=== PATIENT | male | born 1955 | race Caucasian/White ===

== ENCOUNTER 2017-05-07 02:52 | Observation (INO) | payer MEDICARE, OTHER ==
[~2017-05-07] VITALS: Ht 177.8 cm; Wt 91.8 kg
[~2017-05-07 02:52] MED LIST: AMOX500T PO; BACL20TA PO; BISA5TAB64 PO; CENTCHW3; CYMB30CA PO; DIAZ5TAB PO; FENT100D T-DERMAL; FERR1TAB7; GABA800T PO; HYDR50IN3 PO; KCL20 PO; OMEP20TA39 PO; OXYB5TAB PO; PERC7.5T13 PO; PROM25TA5 PO; SENN1TAB2 PO; SPIRCAP INH; TUMS750C PO; VITA100017 PO
[2017-05-07 02:55] VITALS: BP 125/67; PULSE 78; RESP 20; TEMP 98; O2SAT 96
[2017-05-07 03:11] VITALS: O2SAT 96
[2017-05-07 03:30] LABS: AUTOMATED NEUTROPHIL # 7.8 TH/MM3 (1.8-7.7); BASOPHIL % 0.4 % (0.0-2.0); EOSINOPHIL # 0.3 TH/MM3 (0-0.4); EOSINOPHIL % 2.4 % (0.0-4.0); HEMATOCRIT 39.1 % (39.0-51.0); HEMOGLOBIN 13.5 GM/DL (13.0-17.0); LYMPH % 13.9 % (9.0-44.0); LYMPHOCYTE # 1.4 TH/MM3 (1.0-4.8); MEAN CELL VOLUME 84.7 FL (80.0-100.0); MEAN CORPUSCULAR HEMOGLOBIN 29.2 PG (27.0-34.0); MEAN CORPUSCULAR HGB CONC 34.5 % (32.0-36.0); MEAN PLATELET VOLUME 7.9 FL (7.0-11.0); MONO % 7.9 % (0.0-8.0); MONOCYTE # 0.8 TH/MM3 (0-0.9); NEUT % 75.4 % (16.0-70.0); PLATELET COUNT 432 TH/MM3 (150-450); RED BLOOD COUNT 4.62 MIL/MM3 (4.50-5.90); RED CELL DISTRIBUTION WIDTH 14.5 % (11.6-17.2); WHITE BLOOD COUNT 10.4 TH/MM3 (4.0-11.0)
[2017-05-07] MEDS ORDERED: OXYC1CAP PO (03:38)
[2017-05-07] MEDS ORDERED: HYDR-3133 PO (03:38)
[2017-05-07] MEDS ORDERED: GABA800T PO (03:38)
[2017-05-07] MEDS ORDERED: VANC250C2 PO (03:38)
[2017-05-07] MEDS ORDERED: FENT100D T-DERMAL (03:38)
[2017-05-07] MEDS ORDERED: POTA-163 PO (03:38)
[2017-05-07] MEDS ORDERED: SPIRCAP INH (03:38)
[2017-05-07] MEDS ORDERED: BACL20TA PO (03:38)
[2017-05-07] MEDS ORDERED: DIAZ5TAB PO (03:38)
[2017-05-07 03:42] LABS: BACTERIA, URINE FEW /hpf; BILIRUBIN, URINE NEG (NEG); BLOOD, URINE MOD (NEG); CALCIUM OXALATE CRYSTALS,URINE RARE /hpf; GLUCOSE,URINE NEG (NEG); HYALINE CAST, URINE 30 /lpf (RARE); KETONE, URINE 10 mg/dL (NEG); MUCUS URINE FEW /lpf (OCC); NITRITE,URINE NEG (NEG); SQUAMOUS EPITHELIAL CELL URINE 1 /hpf (0-5); URINE COLOR YELLOW (YELLW/STRAW); URINE LEUKOCYTE ESTERASE LARGE (NEG); WHITE BLOOD CELL CLUMPS MOD
[2017-05-07 03:53] LABS: ALBUMIN 3.2 GM/DL (3.4-5.0); ALT (GPT) 23 U/L (12-78); AST (GOT) 14 U/L (15-37); BICARBONATE 23.8 MEQ/L (21.0-32.0); BLOOD UREA NITROGEN 21 MG/DL (7-18); CALCIUM 8.4 MG/DL (8.5-10.1); CHLORIDE 104 MEQ/L (98-107); CREATININE 0.95 MG/DL (0.60-1.30); GLOMERULAR FILTRATION RATE 81 ML/MIN (>89); GLUCOSE,RANDOM 96 MG/DL (74-106); SODIUM (NA) 138 MEQ/L (136-145)
[2017-05-07 04:03] LABS: ALKALINE PHOSPHATASE 131 U/L (45-117); TOTAL BILIRUBIN ADULT 0.3 MG/DL (0.2-1.0); TOTAL PROTEIN 8.5 GM/DL (6.4-8.2)
[2017-05-07 04:04] LABS: ACETAMINOPHEN LESS THAN 2.0 MCG/ML (10.0-30.0)
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
--- NOTE | 2017-05-07 05:11 | RADRPT ---
EXAM DATE/TIME: 05/07/2017 04:17 [facility] COMPARISON: No previous studies available for comparison. INDICATIONS : Altered mental status. RADIATION DOSE: 56.35 CTDIvol (mGy) MEDICAL HISTORY : Non-responsive. SURGICAL HISTORY : Non-responsive. ENCOUNTER: Initial ACUITY: 1 day PAIN SCALE: Non-responsive LOCATION: cranial TECHNIQUE: Multiple contiguous axial images were obtained of the head. Using automated exposure control and adj ustment of the mA and/or kV according to patient size, radiation dose was kept as low as reasonably a chievable to obtain optimal diagnostic quality images. DICOM format image data is available electro nically for review and comparison. FINDINGS: CEREBRUM: Mild diffuse cerebral atrophy. The ventricles are normal for age. No evidence of midline shift, mass lesion, hemorrhage or acute infarction. No extra-axial fluid collections are seen. POSTERIOR FOSSA: The cerebellum and brainstem are intact. The 4th ventricle is midline. The cerebellopontine angle i s unremarkable. EXTRACRANIAL: The visualized portion of the orbits is intact. SKULL: The calvaria is intact. No evidence of skull fracture. CONCLUSION: 1. Senescent changes without acute intracranial abnormality. Terrell Erickson MD on May 07, 2017 at 5:09 Board Certified Radiologist. This report was verified electronically.
[2017-05-07] MEDS ORDERED: SODIUM CHLORID 0.9% 500 ML INJ 500 ML IV ONE (05:15)
[2017-05-07] MEDS ORDERED: cefTRIAXone INJ 1,000 MG in SODIUM CHLORIDE 0.9% INJ 100 ML IV ONE (05:15)
--- NOTE | 2017-05-07 05:49 | RADRPT ---
EXAM DATE/TIME: 05/07/2017 04:44 [facility] COMPARISON: CHEST SINGLE AP, August 24, 2014, 15:02. INDICATIONS : Chest pain MEDICAL HISTORY : Chronic obstructive pulmonary disease. Paraplegic, Squamous cell cancer SURGICAL HISTORY : Left shoulder ENCOUNTER: Initial ACUITY: 1 day PAIN SCORE: 7/10 LOCATION: Bilateral chest FINDINGS: Interval placement of right IJ power line. Mild linear left lower lung zone airspace disease with sli ght volume loss centered prior exam. No significant new focal pleural-parenchymal opacities. Cardiome diastinal contours are within normal limits. Remainder of the exam is unchanged. CONCLUSION: 1. Mild stable left lower lung zone atelectasis/scarring. 2. No significant interval change or acute abnormality. Terrell Erickson MD on May 07, 2017 at 5:47 Board Certified Radiologist. This report was verified electronically.
[2017-05-07] MEDS ORDERED: SODIUM CHLOR 0.9% 1000 ML INJ 1,000 ML IV SCH (06:16)
[2017-05-07] MEDS ORDERED: SENNOSIDES 8.6 MG TAB PO PRN (06:30)
[2017-05-07] MEDS ORDERED: MAGNESIUM HYDROXIDE SUSP 30 ML CUP PO PRN (06:30)
[2017-05-07] MEDS ORDERED: HALOPERIDOL LACTATE 5 MG/ML AMP IM ONE (06:30)
[2017-05-07] MEDS ORDERED: SODIUM CHLORIDE 0.9% FLUSH 10 ML FLUSH IV FLUSH PRN (06:30)
[2017-05-07] MEDS ORDERED: BISACODYL 10 MG SUPP RECTAL PRN (06:30)
[2017-05-07] MEDS ORDERED: DIAZEPAM 5 MG TAB PO PRN (06:30)
[2017-05-07] MEDS ORDERED: LACTULOSE SYRUP 20 GM/30 ML CUP PO PRN (06:30)
[2017-05-07] MEDS ORDERED: ACETAMINOPHEN 325 MG TAB PO PRN (06:30)
[2017-05-07 06:46] VITALS: BP 125/72; PULSE 100; RESP 18; O2SAT 93
[2017-05-07 07:34] VITALS: BP 135/71; PULSE 78; RESP 19; TEMP 97.6; O2SAT 91
--- NOTE | 2017-05-07 08:30 | HHI.HP ---
[facility] Service [place] [facility] Primary Care Physician Unknown Admission Diagnosis AMS, Pretty ACT Diagnoses: Chief Complaint: Pretty Act Travel History International Travel<30 Days: No Contact w/Intl Traveler <30 Da: No Traveled to Known Affected Are: No History of Present Illness Written by Nancy Marshall, acting as scribe for Dr. Maldonado on 05/07/17 at 08: 26. 62-year-old male with history of recent endocarditis on IV Vancomycin, COPD, encephalomyelitis, arthritis, anxiety, paraplegia mostly wheelchair bound, suprapubic catheter in place, presents under Pretty Act placed by police department. The patient states he and his had a disagreement. She told him he lost his mind and he didn't agree. She called police to come to the house. The patient left on his electric wheelchair to go for a "raisa ride" down to the beach, when the police picked him up on the way. Per the Pretty Act, patient was driving the scooter erratically and would not stop for police. The patient states he was recently admitted to [facility], diagnosed with an "infection in my heart". He was discharged 2 days ago. He has been at home with [facility] receiving IV Vanco bid. The [facility] nurse administered the antibiotic in the mornings, and his has been administering this in the evening. He denies any recent fevers/chills. Denies any chest pain or shortness of breath. Denies any history of IVDU. He reports chronic cough [id number] since he previously had a tracheostomy. Denies any abdominal pain, nausea/vomiting, diarrhea, or constipation. He has a chronic suprapubic catheter [id number] since he's been in a wheelchair. He believes the suprapubic catheter was exchanged 2 weeks ago. He states he has been wheelchair bound since he had back surgery by Dr. 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 The patient has no other medical complaints at this time. Review of Systems Except as stated in HPI: all other systems reviewed are Neg Past Family Social History Past Medical History recent endocarditis on IV Vancomycin arthritis anxiety Bowel and urinary incontinence Contractures (Due to paraplegia) COPD Microcytic anemia Nephrolithiasis, recurrent Neurogenic bladder, has suprapubic catheter Neuropathy Recurrent urosepsis Paraplegia (Due to acute disseminated encephalomyelitis) in 1997 Past Surgical History appendectomy left shoulder surgery x2 back surgery suprapubic catheter placement squamous cell skin cancer resection Reported Medications Vancomycin (Vancomycin HCl) 250 Mg Cap 1,000 Mg PO BID Hydroxyzine HCl 25 Mg Tab 25 Mg PO QID Spiriva Handihaler (Tiotropium Inh) 18 Mcg Cap 18 Mcg INH DAILY 1 capsule = 18 mcg Diazepam 5 Mg Tab 5 Mg PO TID PRN Baclofen 20 Mg Tab 20 Mg PO QID Potassium Chloride ER (Potassium Chloride) 20 Meq Tab 20 Meq PO DAILY Oxycodone (Oxycodone HCl) 5 Mg Cap 5 Mg PO BID PRN Gabapentin 800 Mg Tab 800 Mg PO QID Fentanyl Patch 72 HR (Fentanyl) 100 Mcg/Hr Patch 100 Mcg T-DERMAL Q72H Allergies: Coded Allergies: silicone (Verified Allergy, Unknown, 05/07/17) per patient "if it is in my body like my catheter" *MDRO Multi-Drug Resistant Organism (Unverified Adverse Reaction, Unknown , 08/28/14) MRSA (urine) 08/2014 Active Ordered Medications Current Medications Medications (Trade) Dose Ordered Sig/Reyes Route Start Time Stop Time Status Last Admin Ceftriaxone Sodium 1000 mg/ Sodium Chloride 100 ml @ 200 mls/hr Q24H IV 05/08/17 06:00 Sodium Chloride 1,000 ml @ 100 mls/hr Q10H IV 05/07/17 06:16 05/07/17 10:04 (NS Flush) 2 ml UNSCH PRN IV FLUSH 05/07/17 06:30 (NS Flush) 2 ml BID IV FLUSH 05/07/17 09:00 05/07/17 10:04 (Tylenol) 650 mg Q6H PRN PO 05/07/17 06:30 (Pat-Colace) 1 tab BID PO 05/07/17 09:00 05/07/17 10:03 (Milk Of Magnesia Liq) 30 ml Q12H PRN PO 05/07/17 06:30 (Senokot) 17.2 mg Q12H PRN PO 05/07/17 06:30 (Dulcolax Supp) 10 mg DAILY PRN RECTAL 05/07/17 06:30 (Lactulose Liq) 30 ml DAILY PRN PO 05/07/17 06:30 (Lioresal) 20 mg QID PO 05/07/17 09:00 05/07/17 10:03 (Valium) 5 mg TID PRN PO 05/07/17 06:30 (Neurontin) 800 mg QID PO 05/07/17 09:00 05/07/17 10:03 (Atarax) 25 mg QID PO 05/07/17 09:00 05/07/17 10:03 (Spiriva Inh) 18 mcg DAILY INH 05/07/17 09:00 05/07/17 10:03 (Vancomycin 25 Mg/ml Liq) 1,000 mg BID PO 05/07/17 09:00 05/07/17 10:04 Family History Brother with liver cancer Social History smokes tobacco, a little more than 1 PPD denies alcohol use smokes marijuana denies any history of IVDU Physical Exam Vital Signs Vital Signs Date Time Temp Pulse Resp B/P (MAP) Pulse Ox O2 Delivery O2 Flow Rate FiO2 05/07/17 07:34 97.6 78 19 135/71 (92) 91 05/07/17 07:23 05/07/17 06:46 100 18 125/72 (89) 93 05/07/17 03:11 96 Nasal Cannula 2.00 05/07/17 02:55 98.0 78 20 125/67 (86) 96 Physical Exam GENERAL: Well-nourished, well-developed male patient in [facility]. SKIN: Warm and dry. Sacral wound covered with mepilex. HEAD: Normocephalic. Atraumatic. EYES: Pupils equal and round. No scleral icterus. No injection or drainage. ENT: No nasal bleeding or discharge. Mucous membranes pink and moist. NECK: Supple. Trachea midline. Tracheostomy scar. CARDIOVASCULAR: Regular rate and rhythm. S1, S2 noted. No murmur appreciated. RESPIRATORY: No accessory muscle use. Clear to auscultation. Breath sounds equal bilaterally. GASTROINTESTINAL: Abdomen soft, non-tender, nondistended. Normoactive bowel sounds x4. GENITOURINARY: Suprapubic catheter in place MUSCULOSKELETAL: No obvious deformities. Bilateral hands with clubbing. Left frozen shoulder and old surgical scarring. Left hand with contracture. Bilateral legs in boots. NEUROLOGICAL: Awake and alert. Paraplegia. Normal speech. Laboratory Laboratory Tests Test 05/07/17 03:10 05/07/17 04:42 White Blood Count 10.4 Red Blood Count 4.62 Hemoglobin 13.5 Hematocrit 39.1 Mean Corpuscular Volume 84.7 Mean Corpuscular Hemoglobin 29.2 Mean Corpuscular Hemoglobin Concent 34.5 Red Cell Distribution Width 14.5 Platelet Count 432 Mean Platelet Volume 7.9 Neutrophils (%) (Auto) 75.4 Lymphocytes (%) (Auto) 13.9 Monocytes (%) (Auto) 7.9 Eosinophils (%) (Auto) 2.4 Basophils (%) (Auto) 0.4 Neutrophils # (Auto) 7.8 Lymphocytes # (Auto) 1.4 Monocytes # (Auto) 0.8 Eosinophils # (Auto) 0.3 Basophils # (Auto) 0.0 CBC Comment DIFF FINAL Differential Comment Urine Color YELLOW Urine Turbidity CLOUDY Urine pH 6.0 Urine Specific Oakley 1.023 Urine Protein 30 Urine Glucose (UA) NEG Urine Ketones 10 Urine Occult Blood MOD Urine Nitrite NEG Urine Bilirubin NEG Urine Urobilinogen LESS THAN 2.0 Urine Leukocyte Esterase LARGE Urine RBC 68 Urine WBC Urine WBC Clumps MOD Urine Squamous Epithelial Cells 1 Urine Calcium Oxalate Crystals RARE Urine Bacteria FEW Urine Hyaline Casts 30 Urine Granular Casts 19 Urine Mucus FEW Urine Yeast with Hyphae OCC Urine Yeast (Budding) FEW Microscopic Urinalysis Comment CULTURE INDICATED Blood Urea Nitrogen 21 Creatinine 0.95 Random Glucose 96 Total Protein 8.5 Albumin 3.2 Calcium Level 8.4 Alkaline Phosphatase 131 Aspartate Amino Transf (AST/SGOT) 14 Alanine Aminotransferase (ALT/SGPT) 23 Total Bilirubin 0.3 Sodium Level 138 Potassium Level 3.9 Chloride Level 104 Carbon Dioxide Level 23.8 Anion Gap 10 Estimat Glomerular Filtration Rate 81 Thyroid Stimulating Hormone 3rd Gen 1.230 Vancomycin Level Trough 34.7 Salicylates Level 2.4 Urine Opiates Screen NEG Acetaminophen Level LESS THAN 2.0 Urine Barbiturates Screen NEG Urine Amphetamines Screen NEG Urine Benzodiazepines Screen POS Urine Cocaine Screen NEG Urine Cannabinoids Screen POS Ethyl Alcohol Level LESS THAN 3 Ammonia 11 Date/Time Source Procedure Growth Status 05/07/17 03:10 Urine Clean Catch Urine Culture Pending Received Result Diagram: 05/07/1730905/07/17309 Caprini VTE Risk Assessment Caprini VTE Risk Assessment: Mod/High Risk (score >= 2) Caprini Risk Assessment Model Point Value = 1 Point Value = 2 Point Value = 3 Point Value = 5 Age 41-60 Minor surgery BMI > 25 kg/m2 Swollen legs Varicose veins or History of unexplained or recurrent spontaneous Oral contraceptives or hormone replacement Sepsis (< 1 month) Serious lung disease, including pneumonia (< 1 month) Abnormal pulmonary function Acute myocardial infarction Congestive heart failure (< 1 month) History of inflammatory bowel disease Medical patient at bed rest Age 61-74 Arthroscopic surgery Major open surgery (> 45 min) Laparoscopic surgery (> 45 min) Malignancy Confined to bed (> 72 hours) Immobilizing plaster cast Central venous access Age >= 75 History of VTE Family history of VTE Factor V Leiden Prothrombin [id number] Lupus anticoagulant Anticardiolipin antibodies Elevated serum homocysteine Heparin-induced thrombocytopenia Other congenital or acquired thrombophilia Stroke (< 1 month) Elective arthroplasty Hip, pelvis, or leg fracture Acute spinal cord injury (< 1 month) Prophylaxis Regimen Total Risk Factor Score Risk Level Prophylaxis Regimen 0-1 Low Early ambulation 2 Moderate Order ONE of the following: *Sequential Compression Device (SCD) *Heparin 5000 units SQ BID 3-4 Higher Order ONE of the following medications: *Heparin 5000 units SQ TID *Enoxaparin/Lovenox 40 mg SQ daily (WT < 150 kg, CrCl > 30 mL/min) *Enoxaparin/Lovenox 30 mg SQ daily (WT < 150 kg, CrCl > 10-29 mL/min) *Enoxaparin/Lovenox 30 mg SQ BID (WT < 150 kg, CrCl > 30 mL/min) AND/OR *Sequential Compression Device (SCD) 5 or more Highest Order ONE of the following medications: *Heparin 5000 units SQ TID (Preferred with Epidurals) *Enoxaparin/Lovenox 40 mg SQ daily (WT < 150 kg, CrCl > 30 mL/min) *Enoxaparin/Lovenox 30 mg SQ daily (WT < 150 kg, CrCl > 10-29 mL/min) *Enoxaparin/Lovenox 30 mg SQ BID (WT < 150 kg, CrCl > 30 mL/min) AND *Sequential Compression Device (SCD) Assessment and Plan Assessment and Plan 62-year-old male with history of recent endocarditis on IV Vancomycin, COPD, encephalomyelitis, arthritis, anxiety, paraplegia mostly wheelchair bound, suprapubic catheter in place, presents under Pretty Act placed by police department. Psychosis/Paranoia: presented under Pretty Act by police department, driving electric wheelchair erratically, reportedly paranoid his was stealing his money. -Consult psychiatry, discussed with Dr. Colvin, recommends admission to med/psych Acute Encephalopathy: psychosis possibly induced by UTI and recent infection. -CBC, BMP, ammonia, TSH all wnl. UDS positive for benzos and marijuana. -Head CT images reviewed, shows senescent changes without acute intracranial abnormality -Monitor neuro checks -treat UTI as below -patient improved, AAOx4 Complicated UTI with Suprapubic Catheter: UA significant for UTI. -IR consulted to exchange suprapubic catheter today -Continue on IV Rocephin -Monitor urine culture Recent Endocarditis: reportedly diagnosed at [facility], on IV Vanco bid at home with [facility] -obtain records from [facility] stat, discussed with RN, request for records faxed this morning -restart IV Vanco with pharmacy consult COPD: chronic, stable, does not appear to be in exacerbation -continue home meds including Spiriva -albuterol nebs prn Sacral Ulcer: chronic, present on admission -currently has mepilex dressing in place -consult wound care nurse DVT Prophylaxis: Lovenox sq Discussed 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 Discharge patient to med/psych unit Condition on discharge: Fair Regular Diet as tolerated Ad Michela activity Rx written: IV Rocephin, IV Vanco Follow-up with primary care physician and psychiatry [facility] will be consulted to continue medical management in med/psych unit. We will ensure medical orders carry over to new visit number. Attending Statement This note was transcribed by maria eugenia Marshall. I, Dr. Isma Maldonado personally performed the history, physical exam, and medical decision making; and confirmed the accuracy of the information in the transcribed note. Authenticated by Dr. Isma Maldonado on 05/07/17 at 15:24. Nancy Marshall PA-C May 07, 2017 08:30 Isma Maldonado MD May 07, 2017 15:25
[2017-05-07] MEDS ORDERED: VANCOMYCIN 500 MG VIAL (FOR ORAL USE ONLY) PO SCH (09:00)
[2017-05-07] MEDS ORDERED: DOCUSATE SODIUM 50 MG/SENNA 8.6 MG TAB PO SCH (09:00)
[2017-05-07] MEDS ORDERED: SODIUM CHLORIDE 0.9% FLUSH 10 ML FLUSH IV FLUSH SCH (09:00)
[2017-05-07] MEDS ORDERED: BACLOFEN 20 MG TAB PO SCH (09:00)
[2017-05-07] MEDS ORDERED: VANCOMYCIN 25 MG/ML SUSP 100 ML BOTTLE PO SCH (09:00)
[2017-05-07] MEDS ORDERED: GABAPENTIN 400 MG CAP PO SCH (09:00)
[2017-05-07] MEDS ORDERED: TIOTROPIUM BROMIDE 18 MCG INH INH SCH (09:00)
[2017-05-07] MEDS ORDERED: hydrOXYzine HCL 25 MG TAB PO SCH (09:00)
[2017-05-07] MEDS ORDERED: Vancomycin Consult Pharmacy 1 EA OTHER SCH (10:30)
[2017-05-07] MEDS ORDERED: VANC1000P IV (10:56)
[2017-05-07] MEDS ORDERED: CEFT1INJ2 IV (10:56)
--- NOTE | 2017-05-07 10:57 | HHI.DCPOC ---
Discharge Care Plan Diagnosis: (1) COPD (chronic obstructive pulmonary disease) (2) UTI (urinary tract infection) (3) Endocarditis (4) Altered mental status (5) Decubitus ulcer of coccygeal region, stage 4 Goals to Promote Your Health * To prevent worsening of your condition and complications * To maintain your health at the optimal level Directions to Meet Your Goals Take your medications as prescribed Follow your dietary instruction Follow activity as directed Keep your appointments as scheduled Take your immunizations and boosters as scheduled If your symptoms worsen call your PCP, if no PCP go to Urgent Care Center or Emergency Room Smoking is Dangerous to Your Health. Avoid second hand smoke Call the 24-hour hour crisis hotline for domestic abuse at Isma Maldonado MD May 07, 2017 10:57
[2017-05-07] MEDS ORDERED: RESP: ALBUTEROL 2.5 MG/3 ML NEB (PRN) NEB (11:00)
[2017-05-07] MEDS ORDERED: ENOXAPARIN SODIUM 40 MG/0.4 ML SYRINGE SQ SCH (21:00)
[2017-05-08] MEDS ORDERED: cefTRIAXone INJ 1,000 MG in SODIUM CHLORIDE 0.9% INJ 100 ML IV SCH (06:00)
== END 2017-05-07 12:01 | disposition home or self-care (01) ==
LOC: NEPE 02:52 → INTOOBSV 06:19 → NEDA 06:19 → NEPHCDU 07:19
PROVIDERS: ADMIT Family Medicine; ATTEND Family Medicine
DX: T83.510A Infection and inflammatory reaction due to cystostomy catheter, initial encounter (principal); N39.0 Urinary tract infection, site not specified; B95.8 Unspecified staphylococcus as the cause of diseases classified elsewhere; J44.9 Chronic obstructive pulmonary disease, unspecified; I38 Endocarditis, valve unspecified; L89.150 Pressure ulcer of sacral region, unstageable; G04.90 Encephalitis and encephalomyelitis, unspecified; G82.50 Quadriplegia, unspecified; J98.11 Atelectasis; F22 Delusional disorders; N31.9 Neuromuscular dysfunction of bladder, unspecified; Z72.0 Tobacco use; F12.90 Cannabis use, unspecified, uncomplicated; Z85.828 Personal history of other malignant neoplasm of skin; Z86.61 Personal history of infections of the central nervous system; Z87.440 Personal history of urinary (tract) infections; Z87.442 Personal history of urinary calculi; Z93.59 Other cystostomy status; Z99.3 Dependence on wheelchair
CPT/HCPCS: 51705; 70450; 71045; 77002; 80053; 80202; 80307; 81001; 82140; 84443; 85025; 87086; 87106; 96360; 96361; 96372; 99285; G0378; J0696; J1630; J7030; J7040; P9612

== ENCOUNTER 2017-05-07 11:32 | Inpatient (IN) | payer MEDICARE, OTHER ==
[~2017-05-07 11:32] MED LIST changes: +CEFT1INJ2 IV; +HYDR-3133 PO; +OXYC1CAP PO; +POTA-163 PO; +VANC1000P IV; +VANC250C2 PO
[2017-05-07] MEDS ORDERED: MAGNESIUM HYDROXIDE SUSP 30 ML CUP PO PRN ×2 (12:30→18:00)
[2017-05-07] MEDS ORDERED: LORazepam 2 MG/ML VIAL IM PRN ×2 (12:30)
[2017-05-07] MEDS ORDERED: LORazepam 0.5 MG TAB PO PRN (12:30)
[2017-05-07] MEDS ORDERED: ALUMINUM/MAGNESIUM/SIMETH 30 ML CUP PO PRN (12:30)
[2017-05-07] MEDS ORDERED: LORazepam 1 MG TAB PO PRN (12:30)
[2017-05-07 12:40] VITALS: BP 150/72; PULSE 101; RESP 18; TEMP 98.3; O2SAT 90
[2017-05-07] MEDS ORDERED: Vancomycin Consult Pharmacy 1 EA OTHER SCH (13:00)
[2017-05-07] MEDS ORDERED: hydrOXYzine HCL 25 MG TAB PO SCH (13:00)
--- NOTE | 2017-05-07 13:01 | HHI.HP ---
Provisional Diagnosis Admission Date May 07, 2017 at 12:06 Steele I. Unspecified psychosis Steele II. Deferred Steele III. COPD, skin cancer, endocarditis, paraplegic Certification of Person's Competence To Provide Express and Informed Consent I have personally examined Gee Umaña , a person being served at [facility] on, May 07, 2017 12:52. Express and informed consent means consent voluntarily given in writing, by a competent person, after sufficient explanation and disclosure of the subject matter involved to enable the person to make a knowing and willful decision without any element of force, fraud, deceit, duress, or other form of constraint or coercion. This person is 18 years of age or older, is not now known to be incompetent to consent to treatment with a guardian advocate, and does not have a health care surrogate or proxy currently making medical treatment decisions. I have found this person to be one of the following: [] Competent to provide express and informed consent, as defined above, for voluntary admission to this facility and is competent to provide express and informed consent for treatment. He/she has the consistent capacity to make well reasoned, willful, and knowing decisions concerning his or her medical or mental health treatment. The person fully and consistently understands the purpose of the admission for examination/placement and is fully capable of personally exercising all rights [place] [x] Incompetent to provide express and informed consent to voluntary admission, and this is incompetent to provide express and informed consent to treatment. The person must be transferred to involuntary status and a petition for a guardian advocate filed with the Circuit Court. [] Refusing to provide express and informed consent to voluntary admission but is competent to provide express and informed consent for treatment. The person must be discharged or transferred to involuntary status. Form shall be completed within 24 hours of a person's arrival at the receiving facility and filed in the clinical record of each person: 1. Admitted on a voluntary basis 2. Permitted to provide express and informed consent to his/her own treatment 3. Allowed to transfer from involuntary to voluntary status 4. Prior to permitting a person to consent to his or her own treatment after having been previously found incompetent to consent to treatment. History of Present Illness Capacity: Lacks Capacity HPI The patient is a 62-year-old man, domiciled with his in [place], unemployed, , supported by SSI and penitentiary benefits, without no previous psychiatric history, no previous psychiatric hospitalizations, no previous suicidal attempts, he does have cannabis use disorder, with history of recent endocarditis on IV Vancomycin, COPD, encephalomyelitis, arthritis, anxiety, paraplegia mostly wheelchair bound, suprapubic catheter in place, presents under [place] placed by police department. The patient states he and his had a disagreement. She told him he lost his mind and he didn't agree. She called police to come to the house. The patient left on his electric wheelchair to go for a "raisa ride" down to the beach, when the police picked him up on the way. Per the Pretty Act, patient was driving the scooter erratically and would not stop for police. The patient states he was recently admitted to [facility], diagnosed with an "infection in my heart". He was discharged 2 days ago. He has been at home with [facility] receiving IV Vanco bid. The [facility] nurse administered the antibiotic in the mornings, and his has been administering this in the evening. Patient consulted to psychiatry to address psychosis. On psychiatric evaluation the patient is a little bit agitated, irritable and suspicious, however, he is easily redirectable. Patient reports that he doesn't really understand the reason he was brought to the hospital last night. He says that he was running away from his "because she has been trying to steal my money and mistreating me". He says that he has been having disagreements with his about his money and about his health. But, at the same time, he says that his is his reason to live and she is the one that takes better care of him and knows all his problems. The patient reports okay mood, denies depressive symptoms, he denies anxiety, he denies suicidal and homicidal ideation, he denies visual and auditory hallucinations. 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 No agitation or aggressive behavior present at this moment. I spoke personally with his , Jillian umaña, , who clarifies that the patient has been in and out of confusion and erratic behavior in the last weeks due to UTI. She says that at times the patient doesn't know where he is, sees things, but he has never has become so paranoid towards her and she describes this episode as something new. She confirms that the patient doesn't have any previous psychiatric history, no previous suicidal attempts, and he is not taking any psychotropics. She also confirms that the patient doesn't use any drugs or alcohol, but does smoke marijuana almost everyday. Review of Systems Constitutional: DENIES: Diaphoretic episodes, Fatigue, Fever, Weight gain, Weight loss, Chills, Dizziness, Change in appetite, Night Sweats Endocrine: DENIES: Heat/cold intolerance, Polydipsia, Polyuria, Polyphagia Eyes: DENIES: Blurred vision, Diplopia, Eye inflammation, Eye pain, Vision loss , Photosensitivity, Double Vision Ears, nose, mouth, throat: DENIES: Tinnitus, Hearing loss, Vertigo, Nasal discharge, Oral lesions, Throat pain, Hoarseness, Ear Pain, Running Nose, Epistaxis, Sinus Pain, Toothache, Odynophagia Respiratory: DENIES: Apneas, Cough, Snoring, Wheezing, Hemoptysis, Sputum production, Shortness of breath Gastrointestinal: DENIES: Abdominal pain, Black stools, Bloody stools, Constipation, Diarrhea, Nausea, Vomiting, Difficulty Swallowing, Anorexia Genitourinary: DENIES: Sexual dysfunction, Urinary frequency, Urinary incontinence, Urgency, Hematuria, Dysuria, Nocturia, Penile Discharge, Testicular Pain, Testicular Swelling Musculoskeletal: DENIES: Joint pain, Muscle aches, Stiffness, Joint Swelling, Back pain, Neck pain Integumentary: DENIES: Abnormal pigmentation, Nail changes, Pruritus, Rash Hematologic/lymphatic: DENIES: Bruising, Lymphadenopathy Immunologic/allergic: DENIES: Eczema, Urticaria Neurologic: DENIES: Abnormal gait, Headache, Localized weakness, Paresthesias, Seizures, Speech Problems, Tremor, Poor Balance Psychiatric: COMPLAINS OF: Hallucinations, Delusions, DENIES: Anxiety, Confusion, Mood changes, Depression, Agitation, Suicidal Ideation, Homicidal Ideation Past Psych History Violence risk - self (6 mos) Elevated Substance Abuse History Drugs/Alcohol past 12 months Patient reports daily use of marijuana Past Family Social History Coded Allergies: *MDRO Multi-Drug Resistant Organism (Unverified Adverse Reaction, Unknown , 08/28/14) MRSA (urine) 08/2014 Active Scripts Ceftriaxone Inj (Ceftriaxone Inj) 1 Gm/50 Ml Bagp, 1 GM IV Q24H for Infection for 7 Days, BAG 0 Refills Prov:Isma Maldonado MD 05/07/17 Vancomycin Inj (Vancomycin Inj) 1 Gram Inj, 1000 MG IV Q12HR for Infection, #30 BAG 0 Refills Prov:Isma Maldonado MD 05/07/17 Reported Medications Hydroxyzine HCl (Hydroxyzine HCl) 25 Mg Tab, 25 MG PO QID, TAB 0 Refills 05/07/17 Tiotropium Inh (Spiriva Handihaler) 18 Mcg Cap, 18 MCG INH DAILY for COPD, #30 CAP 0 Refills 1 capsule = 18 mcg 05/07/17 Diazepam (Diazepam) 5 Mg Tab, 5 MG PO TID Y for ANXIETY, TAB 0 Refills 05/07/17 Baclofen (Baclofen) 20 Mg Tab, 20 MG PO QID for Muscle Spasm, TAB 0 Refills 05/07/17 Potassium Chloride ER (Potassium Chloride ER) 20 Meq Tab, 20 MEQ PO DAILY for Electrolyte Replacement, #30 TAB 0 Refills 05/07/17 Gabapentin (Gabapentin) 800 Mg Tab, 800 MG PO QID, #90 TAB 0 Refills 05/07/17 Discontinued Reported Medications Vancomycin (Vancomycin) 250 Mg Cap, 1000 MG PO BID for Infection, CAP 0 Refills 05/07/17 Oxycodone (Oxycodone) 5 Mg Cap, 5 MG PO BID Y for PAIN, CAP 0 Refills 05/07/17 Fentanyl Patch 72 HR (Fentanyl Patch 72 HR) 100 Mcg/Hr Patch, 100 MCG T-DERMAL Q72H for Pain Management, #10 PATCH 0 Refills Remove old patch when new one placed. 05/07/17 Calcium Carbonate (Antacid) (Tums E-X 750) 750 Mg Chw, 750 MG PO Q6HR for Indigestion, TAB 08/25/14 Promethazine 25 mg (Phenergan 25 mg) 25 Mg Tab, 25 MG PO Q6H Y for NAUSEA OR VOMITING, #10 TAB 08/25/14 Diazepam 5 mg (Diazepam 5 mg) 5 Mg Tab, 1 TAB PO TID for Anxiety, TAB 08/25/14 Fentanyl 100 Mcg/Hr patch (Fentanyl 100 Mcg/Hr patch) 100 Mcg/H Dis, 1 PATCH T- DERMAL Q3D, PATCH 08/25/14 Oxycodone-Acetaminophen 7.5-325 mg (Percocet 7.5-325 mg) Oxycodone 7.5/325 Acetaminophen Tab, 1 TAB PO Q6H Y for prn for breakthrough pain, TAB 08/25/14 Sennosides-Docusate Sodium (Senna/Docusate Sodium) 1 Tab Tab, PO BID 08/25/14 Bisacodyl (Bisacodyl) 5 Mg Tab, 5 MG PO BID, TAB 08/25/14 Tiotropium Randolph Monohydrate (Spiriva Handihaler) 18 Mcg Cap, 1 PUFF INH DAILY , #5 CAP DO NOT SWALLOW CAPSULES 08/25/14 Omeprazole (Hm Omeprazole) 20 Mg Tab, 20 MG PO BID, TAB 08/25/14 Oxybutynin Chloride (Oxybutynin Chloride Er) 5 Mg Tab, 5 MG PO BID, TAB 08/25/14 DULOXETINE HCl (Cymbalta) 30 Mg Cap, 60 MG PO DAILY, CAP 08/25/14 Gabapentin (Gabapentin) 800 Mg Tab, 800 MG PO QID, TAB 08/25/14 Hydroxyzine Hcl (Hydroxyzine HCl) 50 Mg/Ml Inj, 25 MG PO QID, INJ 08/25/14 Baclofen (Lioresal 20 Mg Tab) 20 Mg Tab, 20 MG PO QID, TAB 08/25/14 Ferrous Sulfate (Iron) 45 Mg Tab, 65 BID 08/25/14 Multiple Vitamins W/ Minerals (Centrum Silver) Silver Chw, DAILY 08/25/14 Ascorbic Acid (Vitamin C) 1,000 Mg Tab, 1000 MG PO BID, TAB 08/25/14 Discontinued Scripts Potassium Chloride (Kcl 20 Meq Tab) 20 Meq Tabcr, 20 MEQ PO DAILY for zele, #6 TAB.SR 0 Refills Prov:Diann Tee MD 08/31/14 Amoxicillin (Amoxicillin) 500 Mg Cap, 500 MG PO TID for UTI, #41 CAP 0 Refills Prov:Diann Tee MD 08/31/14 Current Medications Medications (Trade) Dose Ordered Sig/Reyes Route Start Time Stop Time Status Last Admin (Lioresal) 20 mg QID PO 05/07/17 13:00 (Neurontin) 800 mg QID PO 05/07/17 13:00 (Atarax) 25 mg QID PO 05/07/17 13:00 (Ativan) 1 mg Q6H PRN PO 2/26/18 12:30 (Ativan Inj) 1 mg Q6H PRN IM 05/07/17 12:30 (Tylenol) 650 mg Q4H PRN PO 05/07/17 12:30 (Milk Of Magnesia Liq) 30 ml DAILY PRN PO 05/07/17 12:30 (Mag-Al Plus Susp Liq) 30 ml Q6H PRN PO 05/07/17 12:30 (Habitrol 21 Mg Patch.24 Hr) 1 patch DAILY T-DERMAL 05/08/17 09:00 (Rocephin Inj) 1,000 mg Q24H IV 05/07/17 12:30 UNV (risperDAL) 0.5 mg BID PO 05/07/17 21:00 Miscellaneous Information 1 HS T-DERMAL 05/07/17 21:00 Ceftriaxone Sodium 1000 mg/ Sodium Chloride 100 ml @ 200 mls/hr Q24H IV 05/07/17 15:00 Family Psych History His mother has dementia Social History Patient was born and raised in [facility], he lives in [place] with his , he is unemployed, supported by [employer], is a Patient's Strengths (min. 2) No previous psychiatric history Physical Exam Patient has paraplegia, visible skin relations from skin cancer, psychomotor retardation, no tremors, no EPS Vital Signs Vital Signs Date Time Temp Pulse Resp B/P (MAP) Pulse Ox O2 Delivery O2 Flow Rate FiO2 05/07/17 12:40 98.3 101 18 150/72 (98) 90 Mental Status Examination Appearance: Appropriate Consciousness: Alert Orientation: x4 Motor Activity: Normal gait Speech: Unremarkable Language: Adequate Fund of Knowledge: Adequate Attention and Concentration: Adequate Memory: Unremarkable Mood: Appropriate, Irritable Thought Process & Associations: Intact Thought Content: Appropriate Hallucination Type: Visual Delusion Type: Paranoid Suicidal Ideation: No Suicidal Plan: No Suicidal Intention: No Homicidal Ideation: No Homicidal Plan: No Homicidal Intention: No Insight: Poor Judgment: Poor Assessment & Plan Problem List: (1) Unspecified psychosis ICD Codes: F29 - Unspecified psychosis not due to a substance or known physiological condition Assessment & Plan: On psychiatric evaluation today the patient presents with increased irritability, disorganized behavior and paranoia toward his . Patient doesn't have any previous psychiatric history, he doesn't have any previous suicidal attempts, he is not taking any psychotropics. described his behavior as new, the patient never has been paranoid towards her in the past. Patient seems to be insightless about his delusional thoughts. He is oriented 3, no attention deficit, no fluctuation of consciousness at this moment. Patient needs psychiatric admission for stabilization and safety. We' ll start Risperdal 0.5 mg twice a day. Consult psychiatry for second opinion and hospitalist to continue treatment of UTI and other medical conditions. 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 Assessment & Plan Estimated LOS: days Nahid Colvin MD May 07, 2017 13:01
[2017-05-07] MEDS: BACLOFEN 20 MG TAB PO SCH ×3 (14:30→20:37)
[2017-05-07] MEDS: GABAPENTIN 400 MG CAP PO SCH ×3 (14:31→20:38)
[2017-05-07] MEDS ORDERED: cefTRIAXone 1,000 MG/NS 100 ML IV SCH ×2 (15:00)
--- NOTE | 2017-05-07 16:02 | PD.RAD ---
Post Procedure Progress Note Pre Procedure Diagnosis: (1) Suprapubic catheter (2) Paraplegia Post Procedure Diagnosis: (1) Paraplegia (2) Suprapubic catheter Procedure Date: May 07, 2017 Supervising Radiologist: Harrison Claudio Proceduralist/Assist: Sarita Perez, RT(R)(), Molina Camacho RT(R) Plan of Activity Patient to Unit: Nursing Unit Patient Condition: Good See PACS Report for procedural detail/treatment Drainage Procedure Procedure 1 Imaging Guidance: Fluoroscopy Procedure Type: Suprapubic Tube Procedure: Exchange Urdu: 24 Drainage: [place] drainage Fluid Description: Yellow Findings: Routine exchange Harrison Claudio MD May 07, 2017 16:02
[2017-05-07] MEDS ORDERED: IOHEXOL 350 MG/ML 50 ML BTL (for RAD DIAG) OTHER ONE (16:07)
--- NOTE | 2017-05-07 16:49 | RADRPT ---
EXAM DATE/TIME: 05/07/2017 16:00 [place] COMPARISON: No previous studies available for comparison. INDICATIONS : Patient with urinary tract infection, needs new suprapubic tube. MEDICAL HISTORY : Arthritis anxiety Squamous cell cancer GI disorders Genitourinary disorders Kidney stones Psychiatric problems Respiratory issues SURGICAL HISTORY : Appendectomy Nephroscopy Spinal surgery ENCOUNTER: Initial ACUITY: 1 day PAIN SCORE: 4/10 LOCATION: Left shoulder FLUORO TIME: 0.4 minutes IMAGE SERIES: 2 CONTRAST: 20 cc Omnipaque 350 (iohexol) DEVICE(S): 1.) Yanez catheter 24FR PROCEDURE : 1. Suprapubic catheter change. The risks, benefits and alternatives to the procedure were explained and verbal and written consent w as obtained. The site was prepped in sterile fashion. Full sterile technique was used, including cap, mask, steril e gloves and gown and a large sterile sheet. Hand hygiene and 2% chlorhexidine and/or betadine/alcoho l prep was utilized per protocol for cutaneous antisepsis. The skin and subcutaneous tissues were infiltrated with local anes thetic solution. Contrast was injected through the existing Yanez to ensure appropriate position. The old catheter was removed and replaced with a new 24 [place] Yanez. Balloon was insufflated to 10mm. No sedation was used. CONCLUSION: Uncomplicated suprapubic catheter exchange. Harrison Claudio MD on May 07, 2017 at 16:41 Board Certified Radiologist. This report was verified electronically.
[2017-05-07 18:00] VITALS: BP 142/74; PULSE 104; RESP 16; TEMP 98.9; O2SAT 91
[2017-05-07] MEDS ORDERED: SENNOSIDES 8.6 MG TAB PO PRN (18:00)
[2017-05-07] MEDS: BISACODYL 10 MG SUPP RECTAL PRN (18:17)
[2017-05-07] MEDS: risperiDONE 0.5 MG TAB PO SCH (20:38)
[2017-05-07] MEDS: DOCUSATE SODIUM 50 MG/SENNA 8.6 MG TAB PO SCH (20:38)
[2017-05-07] MEDS: REMOVE OLD NICODERM (NICOTINE) PATCH T-DERMAL SCH (20:51)
[2017-05-07] MEDS: ACETAMINOPHEN 325 MG TAB PO PRN (22:50)
[2017-05-08 05:02] VITALS: BP 159/93; PULSE 72; RESP 17; TEMP 97.5; O2SAT 93
[2017-05-08] MEDS: cefTRIAXone INJ 1,000 MG in SODIUM CHLORIDE 0.9% INJ 100 ML IV SCH (05:13)
[2017-05-08] MEDS: ACETAMINOPHEN 325 MG TAB PO PRN (05:14)
[2017-05-08 08:00] LABS: BICARBONATE 22.6 MEQ/L (21.0-32.0); BLOOD UREA NITROGEN 15 MG/DL (7-18); CALCIUM 8.4 MG/DL (8.5-10.1); CHLORIDE 109 MEQ/L (98-107); CREATININE 0.62 MG/DL (0.60-1.30); GLOMERULAR FILTRATION RATE 132 ML/MIN (>89); GLUCOSE,RANDOM 91 MG/DL (74-106); SODIUM (NA) 139 MEQ/L (136-145)
[2017-05-08 08:02] LABS: CHOLESTEROL 127 MG/DL (120-200)
[2017-05-08 08:06] LABS: HDL CHOLESTEROL 52.9 MG/DL (40.0-60.0); LDL CHOLESTEROL 63 MG/DL (0-99); RANDOM VANCOMYCIN 11.7 COMMENT; TRIGLYCERIDES 55 MG/DL (42-150)
[2017-05-08] MEDS: BACLOFEN 20 MG TAB PO SCH ×4 (08:32→21:25)
[2017-05-08] MEDS: risperiDONE 0.5 MG TAB PO SCH ×2 (08:33→21:24)
[2017-05-08] MEDS: GABAPENTIN 400 MG CAP PO SCH ×4 (08:33→21:24)
[2017-05-08] MEDS: DOCUSATE SODIUM 50 MG/SENNA 8.6 MG TAB PO SCH ×2 (08:33→21:25)
[2017-05-08] MEDS: NICOTINE 21 MG/24 HR PATCH T-DERMAL SCH (08:35)
--- NOTE | 2017-05-08 10:06 | PD.PSY.CON ---
Provisional Diagnosis Admission Date May 07, 2017 at 12:06 [place] I. Unspecified psychosis [place] II. Deferred [place] III. COPD, skin cancer, endocarditis, paraplegic History of Present Illness Service Psychiatry Consult Requested By Dr. Colvin Reason for Consult Second opinion Primary Care Physician Unknown HPI The patient is a 62-year-old man, domiciled with his in [place], unemployed, , supported by SSI and residential benefits, without no previous psychiatric history, no previous psychiatric hospitalizations, no previous suicidal attempts, he does have cannabis use disorder, with history of recent endocarditis on IV Vancomycin, COPD, encephalomyelitis, arthritis, anxiety, paraplegia mostly wheelchair bound, suprapubic catheter in place, presents under [place] placed by police department. The patient states he and his had a disagreement. She told him he lost his mind and he didn't agree. She called police to come to the house. The patient left on his electric wheelchair to go for a "raisa ride" down to the [place], when the police picked him up on the way. Per the [place] Act, patient was driving the scooter erratically and would not stop for police. The patient states he was recently admitted to [facility], diagnosed with an "infection in my heart". He was discharged 2 days ago. He has been at home with [facility] receiving IV Vanco bid. The [facility] nurse administered the antibiotic in the mornings, and his has been administering this in the evening. Patient consulted to psychiatry to address psychosis. On psychiatric evaluation the patient is a little bit agitated, irritable and suspicious, however, he is easily redirectable. Patient reports that he doesn't really understand the reason he was brought to the hospital last night. He says that he was running away from his "because she has been trying to steal my money and mistreating me". He says that he has been having disagreements with his about his money and about his health. But, at the same time, he says that his is his reason to live and she is the one that takes better care of him and knows all his problems. The patient reports okay mood, denies depressive symptoms, he denies anxiety, he denies suicidal and homicidal ideation, he denies visual and auditory hallucinations. The patient is fully oriented 3, he knows was the regional director. No agitation or aggressive behavior present at this moment. I spoke personally with his , Jillian bryant, , who clarifies that the patient has been in and out of confusion and erratic behavior in the last weeks due to UTI. She says that at times the patient doesn't know where he is, sees things, but he has never has become so paranoid towards her and she describes this episode as something new. She confirms that the patient doesn't have any previous psychiatric history, no previous suicidal attempts, and he is not taking any psychotropics. She also confirms that the patient doesn't use any drugs or alcohol, but does smoke marijuana almost everyday. Second opinion: Patient seen for follow up and second opinion; chart reviewed. Discussion with nursing staff reported the patient had stated that there was a baby under his bed. Patient was found lying in hospital bed noted to be guarded and superficially cooperative. Patient states that he does not need to sleep at night but did state slept well last evening which was unusual for him. Patient states that he usually takes naps during the day stating that he only takes 2-3 hours at night. One recall events prior to hospitalization patient states that he left the home to get away from his which was sometime in the night and denies having done anything unusual to have himself brought in by the police. He states that he had argued with his and was going down the bike path contrary to police report patient was coming in and out of traffic which she denied. He also mentioned that he the has plans to take all his money and that she had him for his money. Patient states he has not spoken to her since his admission plans to. Patient reports his mood being "good" denies any suicidal or homicidal ideations, denies any perceptional disturbances. When asked about visual hallucinations which she had endorsed as per chart he denied. Review of Systems Except as stated in HPI: all other systems reviewed are Neg Past Family Social History Coded Allergies: silicone (Verified Allergy, Unknown, 05/07/17) per patient "if it is in my body like my catheter" *MDRO Multi-Drug Resistant Organism (Unverified Adverse Reaction, Unknown , 08/28/14) MRSA (urine) 08/2014 Active Scripts Ceftriaxone Inj (Ceftriaxone Inj) 1 Gm/50 Ml Bagp, 1 GM IV Q24H for Infection for 7 Days, BAG 0 Refills Prov:Isma Maldonado MD 05/07/17 Vancomycin Inj (Vancomycin Inj) 1 Gram Inj, 1000 MG IV Q12HR for Infection, #30 BAG 0 Refills Prov:Isma Maldonado MD 05/07/17 Reported Medications Hydroxyzine HCl (Hydroxyzine HCl) 25 Mg Tab, 25 MG PO QID, TAB 0 Refills 05/07/17 Tiotropium Inh (Spiriva Handihaler) 18 Mcg Cap, 18 MCG INH DAILY for COPD, #30 CAP 0 Refills 1 capsule = 18 mcg 05/07/17 Diazepam (Diazepam) 5 Mg Tab, 5 MG PO TID Y for ANXIETY, TAB 0 Refills 05/07/17 Baclofen (Baclofen) 20 Mg Tab, 20 MG PO QID for Muscle Spasm, TAB 0 Refills 05/07/17 Potassium Chloride ER (Potassium Chloride ER) 20 Meq Tab, 20 MEQ PO DAILY for Electrolyte Replacement, #30 TAB 0 Refills 05/07/17 Gabapentin (Gabapentin) 800 Mg Tab, 800 MG PO QID, #90 TAB 0 Refills 05/07/17 Discontinued Reported Medications Vancomycin (Vancomycin) 250 Mg Cap, 1000 MG PO BID for Infection, CAP 0 Refills 05/07/17 Oxycodone (Oxycodone) 5 Mg Cap, 5 MG PO BID Y for PAIN, CAP 0 Refills 05/07/17 Fentanyl Patch 72 HR (Fentanyl Patch 72 HR) 100 Mcg/Hr Patch, 100 MCG T-DERMAL Q72H for Pain Management, #10 PATCH 0 Refills Remove old patch when new one placed. 05/07/17 Calcium Carbonate (Antacid) (Tums E-X 750) 750 Mg Chw, 750 MG PO Q6HR for Indigestion, TAB 08/25/14 Promethazine 25 mg (Phenergan 25 mg) 25 Mg Tab, 25 MG PO Q6H Y for NAUSEA OR VOMITING, #10 TAB 08/25/14 Diazepam 5 mg (Diazepam 5 mg) 5 Mg Tab, 1 TAB PO TID for Anxiety, TAB 08/25/14 Fentanyl 100 Mcg/Hr patch (Fentanyl 100 Mcg/Hr patch) 100 Mcg/H Dis, 1 PATCH T- DERMAL Q3D, PATCH 08/25/14 Oxycodone-Acetaminophen 7.5-325 mg (Percocet 7.5-325 mg) Oxycodone 7.5/325 Acetaminophen Tab, 1 TAB PO Q6H Y for prn for breakthrough pain, TAB 08/25/14 Sennosides-Docusate Sodium (Senna/Docusate Sodium) 1 Tab Tab, PO BID 08/25/14 Bisacodyl (Bisacodyl) 5 Mg Tab, 5 MG PO BID, TAB 08/25/14 Tiotropium [place] Monohydrate (Spiriva Handihaler) 18 Mcg Cap, 1 PUFF INH DAILY , #5 CAP DO NOT SWALLOW CAPSULES 08/25/14 Omeprazole (Hm Omeprazole) 20 Mg Tab, 20 MG PO BID, TAB 08/25/14 Oxybutynin Chloride (Oxybutynin Chloride Er) 5 Mg Tab, 5 MG PO BID, TAB 08/25/14 DULOXETINE HCl (Cymbalta) 30 Mg Cap, 60 MG PO DAILY, CAP 08/25/14 Gabapentin (Gabapentin) 800 Mg Tab, 800 MG PO QID, TAB 08/25/14 Hydroxyzine Hcl (Hydroxyzine HCl) 50 Mg/Ml Inj, 25 MG PO QID, INJ 08/25/14 Baclofen (Lioresal 20 Mg Tab) 20 Mg Tab, 20 MG PO QID, TAB 08/25/14 Ferrous Sulfate (Iron) 45 Mg Tab, 65 BID 08/25/14 Multiple Vitamins W/ Minerals (Centrum Silver) Silver Chw, DAILY 08/25/14 Ascorbic Acid (Vitamin C) 1,000 Mg Tab, 1000 MG PO BID, TAB 08/25/14 Discontinued Scripts Potassium Chloride (Kcl 20 Meq Tab) 20 Meq Tabcr, 20 MEQ PO DAILY for zele, #6 TAB.SR 0 Refills Prov:Diann Tee MD 08/31/14 Amoxicillin (Amoxicillin) 500 Mg Cap, 500 MG PO TID for UTI, #41 CAP 0 Refills Prov:Diann Tee MD 08/31/14 Current Medications Medications (Trade) Dose Ordered Sig/Reyes Route Start Time Stop Time Status Last Admin (Lioresal) 20 mg QID PO 05/07/17 13:00 05/08/17 08:32 (Neurontin) 800 mg QID PO 05/07/17 13:00 05/08/17 08:33 (Atarax) 25 mg QID PO 05/07/17 13:00 Future Hold (Ativan) 1 mg Q6H PRN PO 05/07/17 12:30 Future Hold (Ativan Inj) 1 mg Q6H PRN IM 05/07/17 12:30 Future Hold (Tylenol) 650 mg Q4H PRN PO 05/07/17 12:30 05/08/17 05:14 (Milk Of Magnesia Liq) 30 ml DAILY PRN PO 05/07/17 12:30 (Mag-Al Plus Susp Liq) 30 ml Q6H PRN PO 05/07/17 12:30 (Habitrol 21 Mg Patch.24 Hr) 1 patch DAILY T-DERMAL 05/08/17 09:00 05/08/17 08:35 (risperDAL) 0.5 mg BID PO 05/07/17 21:00 05/08/17 08:33 Miscellaneous Information 1 HS T-DERMAL 05/07/17 21:00 05/07/17 20:51 Pharmacy Profile Note 0 ml @ 0 mls/hr UNSCH OTHER 05/07/17 13:00 Ceftriaxone Sodium 1000 mg/ Sodium Chloride 100 ml @ 200 mls/hr Q24H IV 05/08/17 06:00 05/08/17 05:13 (Pat-Colace) 1 tab BID PO 05/07/17 21:00 05/08/17 08:33 (Milk Of Magnesia Liq) 30 ml Q12H PRN PO 05/07/17 18:00 (Senokot) 17.2 mg Q12H PRN PO 05/07/17 18:00 (Dulcolax Supp) 10 mg DAILY PRN RECTAL 05/07/17 18:00 05/07/17 18:17 Patient's Strengths (min. 2) No previous psychiatric history Physical Exam Vital Signs Vital Signs Date Time Temp Pulse Resp B/P (MAP) Pulse Ox O2 Delivery O2 Flow Rate FiO2 05/08/17 05:02 97.5 72 17 159/93 (115) 93 I/O 05/08/17 05/08/17 05/09/17 08:00 16:00 00:00 Intake Total 720 ml 360 ml Output Total 1300 ml Balance -580 ml 360 ml Lab Results Test 05/08/17 06:53 Blood Urea Nitrogen 15 MG/DL Creatinine 0.62 MG/DL Random Glucose 91 MG/DL Calcium Level 8.4 MG/DL Sodium Level 139 MEQ/L Potassium Level 4.1 MEQ/L Chloride Level 109 MEQ/L Carbon Dioxide Level 22.6 MEQ/L Anion Gap 7 MEQ/L Estimat Glomerular Filtration Rate 132 ML/MIN Triglycerides Level 55 MG/DL Cholesterol Level 127 MG/DL LDL Cholesterol 63 MG/DL HDL Cholesterol 52.9 MG/DL Cholesterol/HDL Ratio 2.40 RATIO Random Vancomycin Level 11.7 COMMENT Mental Status Examination Appearance: Appropriate Consciousness: Alert Orientation: x4 Motor Activity: Normal gait Speech: Unremarkable Language: Adequate Fund of Knowledge: Adequate Attention and Concentration: Adequate Memory: Unremarkable Mood: Appropriate, Irritable Affect: Irritable Thought Process & Associations: Intact Thought Content: Appropriate Hallucination Type: Auditory, Visual Delusion Type: Paranoid Suicidal Ideation: No Suicidal Plan: No Suicidal Intention: No Homicidal Ideation: No Homicidal Plan: No Homicidal Intention: No Insight: Poor Judgment: Poor Assessment & Plan Problem List: (1) Unspecified psychosis ICD Codes: F29 - Unspecified psychosis not due to a substance or known physiological condition Assessment & Plan I have seen and examined this patient, reviewed the documentation, discussed personally with Dr. Colvin, and I agree and concur with his assessment and plan. Consult appreciated. Patient this time continues with paranoid delusions along with recent perceptual disturbances. The patient is alert and oriented 3 continues to endorse some psychotic symptoms. Unclear whether the patient's current psychosis is secondary to delirium but will continue medical management as per prior medical team and continue to address psychosis with risperidone. Continue to monitor mood and behavior. Collateral formation pending. Second opinion completed. Discharge planning in progress. Discharge Planning Patient to return back to his residence once psychiatrically and medically stable. Michael Jackman MD May 08, 2017 10:06
--- NOTE | 2017-05-08 12:09 | PD.WCN.NOT ---
Wound Consult Description: Received consult from Doctor Bass regarding pressure injury sacral area. Communicated with: [facility] medical psych unit and Doctor Jackman Recommendation: 1.Please cleanse open wounds to coccyx and L ischial with normal saline or wound cleanser and pat dry. 2.Apply Calazime barrier cream and to periwound scar tissue. 3.Apply Maxorb II packed loosely to open wound only and cover with bordered gauze. 4.Please apply skin prep to intact skin before securing dressing to patient. Additional Information: Patient seen on 4th floor psych unit for evaluation of sacral pressure ulcer. Patient was turned to R side with the assistance of writer producer and KATY watson. Removed adhesive foam dressings in place to reveal open wound to coccyx and L ischium. Periwound of both wounds present with intact invaginated scar tissue and epibole wound margins.Scar tissue is noted with peeling denuded skin . Cleansed wounds with normal saline and patted dry. Wound to L ischial measures 1.5cm x 1cm x 1.5cm Wound bed is noted with 100% red granulated tissue. Coccyx measures 0.8cm x 1cm x 0.8cm. Wound bed presents with 100% pink tissue. Packed both wounds loosely with calcium alginate (Maxorb II) dressing and covered with bordered gauze. Skin prep was applied to periwound scar tissue and intact skin before bordered gauze was applied. Patient reports having low airloss mattress at home. Due to unit restriction, explained to patient, low airloss mattress can't be ordered.Patient sees Doctor Dahl out patient for wound care. Encouraged patient to follow up with Doctor Dahl. Wounds will not close without opening epibole areas. Patient was positioned off bottom to R side with pillow in place for support. Bed was lowered to safe height before leaving the room.Wound care recommendations are noted above. Katherin Mendez [facility] May 08, 2017 12:09
[2017-05-08 15:41] LABS: HEMOGLOBIN A1C 5.5 % (4.3-6.0)
--- NOTE | 2017-05-08 15:56 | PD.CONS ---
HPI Service [facility] Consult Requested By DR TUAN TRAYLOR Reason for Consult MEDICAL MANAGEMENT Primary Care Physician Unknown Diagnoses: History of Present Illness Patient is a 62-year-old male recently treated for endocarditis on IV vancomycin , as well as COPD, encephalomyelitis. As well as arthritis, and anxiety and paraplegia who is mostly wheelchair bound, as well as suprapubic catheter in place was brought in initially under [place] act by police department. Patient had been admitted and then now transferred to inpatient psychiatry. Patient was arguing with his then [place] police picked him up and brought him to the hospital. The patient had recently been admitted to [facility], with what sounds like endocarditis had been on home health care receiving IV vancomycin twice daily and the nurse had been administering the IV vancomycin in the mornings and the have been administering the IV vancomycin in the evenings denies any history of IV drug abuse has chronic cough with history of tracheostomy has chronic suprapubic catheter for the past 2 years this was changed Patient has been transferred to inpatient psychiatry and will continue on IV antibiotics Review of Systems Constitutional: DENIES: Diaphoretic episodes, Fatigue, Fever, Weight gain, Weight loss, Chills, Dizziness, Change in appetite Endocrine: DENIES: Heat/cold intolerance, Polydipsia, Polyuria, Polyphagia Eyes: DENIES: Blurred vision, Diplopia, Eye inflammation, Eye pain, Vision loss , Photosensitivity Ears, nose, mouth, throat: DENIES: Tinnitus, Hearing loss, Vertigo, Nasal discharge, Oral lesions, Throat pain, Hoarseness, Ear Pain Respiratory: DENIES: Apneas, Cough, Snoring, Wheezing, Hemoptysis, Sputum production, Shortness of breath Cardiovascular: DENIES: Chest pain, Palpitations, Syncope, Dyspnea on Exertion , PND, Lower Extremity Edema Gastrointestinal: DENIES: Abdominal pain, Black stools, Bloody stools, Constipation, Diarrhea, Nausea, Vomiting, Difficulty Swallowing Musculoskeletal: DENIES: Joint pain, Muscle aches, Stiffness, Joint Swelling, Back pain Integumentary: DENIES: Abnormal pigmentation, Nail changes, Pruritus, Rash Hematologic/lymphatic: DENIES: Bruising Immunologic/allergic: DENIES: Eczema, Urticaria Neurologic: COMPLAINS OF: Abnormal gait, Localized weakness, Paresthesias, Poor Balance, DENIES: Headache, Seizures, Speech Problems, Tremor Psychiatric: COMPLAINS OF: Anxiety, Confusion, Depression, Agitation, DENIES: Mood changes, Hallucinations, Suicidal Ideation, Homicidal Ideation, Delusions Except as stated in HPI: all other systems reviewed are Neg Past Family Social History Allergies: Coded Allergies: silicone (Verified Allergy, Unknown, 05/07/17) per patient "if it is in my body like my catheter" *MDRO Multi-Drug Resistant Organism (Unverified Adverse Reaction, Unknown , 08/28/14) MRSA (urine) 08/2014 Past Medical History recent endocarditis on IV Vancomycin arthritis anxiety Bowel and urinary incontinence Contractures (Due to paraplegia) COPD Microcytic anemia Nephrolithiasis, recurrent Neurogenic bladder, has suprapubic catheter Neuropathy Recurrent urosepsis Paraplegia (Due to acute disseminated encephalomyelitis) in 1997 Past Surgical History Past Surgical History appendectomy left shoulder surgery x2 back surgery suprapubic catheter placement squamous cell skin cancer resection Reported Medications Reported Meds & Active Scripts Active Ceftriaxone Inj (Ceftriaxone Sodium/Dextrose) 1 Gm/50 Ml Bagp 1 Gm IV Q24H 7 Days Vancomycin Inj (Vancomycin HCl) 1 Gram Inj 1,000 Mg IV Q12HR Reported Hydroxyzine HCl 25 Mg Tab 25 Mg PO QID Spiriva Handihaler (Tiotropium Inh) 18 Mcg Cap 18 Mcg INH DAILY 1 capsule = 18 mcg Diazepam 5 Mg Tab 5 Mg PO TID PRN Baclofen 20 Mg Tab 20 Mg PO QID Potassium Chloride ER (Potassium Chloride) 20 Meq Tab 20 Meq PO DAILY Gabapentin 800 Mg Tab 800 Mg PO QID Active Ordered Medications Current Medications Baclofen (Lioresal) 20 mg QID PO Last administered on 05/08/17at 12:45; Start at 13:00 Gabapentin (Neurontin) 800 mg QID PO Last administered on 05/08/17at 12:45; Start 05/07/17 at 13:00 Hydroxyzine HCl (Atarax) 25 mg QID PO ; Start 05/07/17 at 13:00; Status Future Hold Lorazepam (Ativan) 1 mg Q6H PRN PO MODERATE TO SEVERE ANXIETY; Start 05/07/17 at 12:30; Status Future Hold Lorazepam (Ativan Inj) 1 mg Q6H PRN IM MODERATE TO SEVERE ANXIETY; Start at 12:30; Status Future Hold Lorazepam (Ativan) 0.5 mg Q12H PRN PO MODERATE TO SEVERE ANXIETY; Start at 12:30; Stop 05/07/17 at 12:48; Status DC Lorazepam (Ativan Inj) 0.5 mg Q12H PRN IM MODERATE TO SEVERE ANXIETY; Start at 12:30; Stop 05/07/17 at 12:48; Status DC Acetaminophen (Tylenol) 650 mg Q4H PRN PO Pain 1-5 or Temp >101F Last administered on 05/08/17at 05:14; Start 05/07/17 at 12:30 Magnesium Hydroxide (Milk Of Magnesia Liq) 30 ml DAILY PRN PO CONSTIPATION; Start 05/07/17 at 12:30 Al Hydrox/Mg Hydrox/Simethicone (Mag-Al Plus Susp Liq) 30 ml Q6H PRN PO DYSPEPSIA; Start 05/07/17 at 12:30 Nicotine (Habitrol 21 Mg Patch.24 Hr) 1 patch DAILY T-DERMAL Last administered on 05/08/17at 08:35; Start 05/08/17 at 09:00 Ceftriaxone Sodium (Rocephin Inj) 1,000 mg Q24H IV ; Start 05/07/17 at 12:30; Stop 05/07/17 at 12:57; Status DC Risperidone (risperDAL) 0.5 mg BID PO Last administered on 05/08/17at 08:33; Start 05/07/17 at 21:00 Miscellaneous Information 1 HS T-DERMAL Last administered on 05/07/17at 20:51; Start 05/07/17 at 21:00 Ceftriaxone Sodium 1000 mg/ Sodium Chloride 100 ml @ 200 mls/hr Q24H IV ; Start 05/07/17 at 15:00; Status Cancel Pharmacy Profile Note 0 ml @ 0 mls/hr UNSCH OTHER ; Start 05/07/17 at 13:00 Ceftriaxone Sodium 1000 mg/ Sodium Chloride 100 ml @ 200 mls/hr Q24H IV Last administered on 05/08/17at 05:13; Start 05/08/17 at 06:00 Iohexol (Omnipaque 350 Inj) 20 ml STK-MED ONCE OTHER Last administered on at 16:07; Start 05/07/17 at 16:07; Stop 05/07/17 at 16:08; Status DC Senna/Docusate Sodium (Pat-Colace) 1 tab BID PO Last administered on at 08:33; Start 05/07/17 at 21:00 Magnesium Hydroxide (Milk Of Leonora Waddell) 30 ml Q12H PRN PO Mild constipation ; Start 05/07/17 at 18:00 Sennosides (Senokot) 17.2 mg Q12H PRN PO Moderate constipation; Start 05/07/17 at 18:00 Bisacodyl (Dulcolax Supp) 10 mg DAILY PRN RECTAL SEVERE CONSITIPATION Last administered on 05/07/17at 18:17; Start 05/07/17 at 18:00 Family History Family History Brother with liver cancer Social History Social History smokes tobacco, a little more than 1 PPD denies alcohol use smokes marijuana denies any history of IVDU Physical Exam Vital Signs Vital Signs Date Time Temp Pulse Resp B/P (MAP) Pulse Ox O2 Delivery O2 Flow Rate FiO2 05/08/17 05:02 97.5 72 17 159/93 (115) 93 05/07/17 18:00 98.9 104 16 142/74 (96) 91 Physical Exam GENERAL: This is a well-nourished, well-developed patient, in no apparent distress. SKIN: No rashes, ecchymoses or lesions. Cool and dry. Obvious skin color changes from where he is not in the sun HEAD: Atraumatic. Normocephalic. No temporal or scalp tenderness. EYES: Pupils equal round and reactive. Extraocular motions intact. No scleral icterus. No injection or drainage. ENT: Nose without bleeding, purulent drainage or septal hematoma. Throat without erythema, tonsillar hypertrophy or exudate. Uvula midline. Airway patent. NECK: Trachea midline. No JVD or lymphadenopathy. Supple, nontender, no meningeal signs. Old tracheostomy site healed-but not healed well CARDIOVASCULAR: Regular rate and rhythm without murmurs, gallops, or rubs. S1 and S2 no S3 or S4 RESPIRATORY: Clear to auscultation. Breath sounds equal bilaterally. No wheezes , rales, or rhonchi. GASTROINTESTINAL: Abdomen soft, non-tender, nondistended. No hepato-splenomegaly , or palpable masses. No guarding. MUSCULOSKELETAL: Extremities without clubbing, cyanosis, or edema. No joint tenderness, effusion, or edema noted. No calf tenderness. Negative Homans sign bilaterally. NEUROLOGICAL: Awake and alert. Cranial nerves II through XII intact. Motor and sensory grossly within normal limits. 4 out of 5 muscle strength in all muscle groups in upper extremities and paraplegia and lower extremities. Normal speech. Insight and judgment is limited Mood and behavior is somewhat appropriate Laboratory Laboratory Tests Test 05/08/17 06:53 Blood Urea Nitrogen 15 Creatinine 0.62 Random Glucose 91 Calcium Level 8.4 Sodium Level 139 Potassium Level 4.1 Chloride Level 109 Carbon Dioxide Level 22.6 Anion Gap 7 Estimat Glomerular Filtration Rate 132 Triglycerides Level 55 Cholesterol Level 127 LDL Cholesterol 63 HDL Cholesterol 52.9 Cholesterol/HDL Ratio 2.40 Random Vancomycin Level 11.7 Result Diagram: 05/08/17 0653 Imaging Last Impressions Tube Placement X-Ray 05/07/17 0000 Signed Impressions: Service Date/Time: Sunday, May 07, 2017 16:00 - CONCLUSION: Uncomplicated suprapubic catheter exchange. Harrison Claudio MD Assessment and Plan Assessment and Plan 62-year-old male with history of recent endocarditis on IV Vancomycin, COPD, encephalomyelitis, arthritis, anxiety, paraplegia mostly wheelchair bound, suprapubic catheter in place, presents under [place] Act placed by police department. Psychosis/Paranoia: presented under [employer] Act by police department, driving electric wheelchair erratically, reportedly paranoid his was stealing his money. Currently in psychiatry in med/psych Acute Encephalopathy: psychosis possibly induced by UTI and recent infection. -CBC, BMP, ammonia, TSH all wnl. UDS positive for benzos and marijuana. -Head CT images reviewed, shows senescent changes without acute intracranial abnormality -Monitor neuro checks -treat UTI as below -patient improved, AAOx4 Complicated UTI with Suprapubic Catheter: UA significant for UTI. -IR exchanged suprapubic catheter -Continue on IV Rocephin -Monitor urine culture Recent Endocarditis: reportedly diagnosed at [facility], on IV Vanco bid at home -obtain records from [facility] stat, discussed with RN, request for records faxed this morning -restart IV Vanco with pharmacy consult COPD: chronic, stable, does not appear to be in exacerbation -continue home meds including Spiriva -albuterol nebs prn Sacral Ulcer: chronic, present on admission -Wound care per plastic extrusion operator -consult wound care nurse DVT Prophylaxis: Lovenox sq Code Status FULL CODE Discussed Condition With RN and patient Jarred Morris DO May 08, 2017 15:56
[2017-05-08] MEDS: VANCOMYCIN 1,500 MG/NS 500 ML IV SCH ×2 (18:00)
[2017-05-08 18:03] VITALS: BP 138/84; PULSE 98; RESP 18; TEMP 98; O2SAT 93
[2017-05-08] MEDS: REMOVE OLD NICODERM (NICOTINE) PATCH T-DERMAL SCH (21:00)
[2017-05-09] MEDS: cefTRIAXone INJ 1,000 MG in SODIUM CHLORIDE 0.9% INJ 100 ML IV SCH (05:25)
[2017-05-09 05:47] VITALS: BP 125/82; PULSE 86; RESP 16; TEMP 97.9; O2SAT 95
--- NOTE | 2017-05-09 10:39 | RADRPT ---
EXAM DATE/TIME: 05/09/2017 10:01 [place] COMPARISON: No previous studies available for comparison. INDICATIONS : Left humerus pain after fall. MEDICAL HISTORY : Parapalegic, shoulder dislocation. SURGICAL HISTORY : None. ENCOUNTER: Initial ACUITY: 2 days PAIN SCORE: 10/10 LOCATION: Left proximal humerus. FINDINGS: 2 views of the left humerus demonstrate undermineralization of the bones with fracture of the proxima l humeral metaphysis in the surgical neck region. Based on the obliquity of the images obtained I can not determine if the fracture involves the humeral head or glenohumeral joint. No definite dislocatio n is seen. Acromioclavicular joint is intact. There is adjacent soft tissue swelling in the proximal arm. Visualized left chest demonstrates no acute finding. CONCLUSION: There is an acute fracture of the proximal humeral metaphysis and the surgical neck region. Jorje Acevedo MD on May 09, 2017 at 10:36 Board Certified Radiologist. This report was verified electronically.
[2017-05-09] MEDS: NICOTINE 21 MG/24 HR PATCH T-DERMAL SCH (10:49)
[2017-05-09] MEDS: GABAPENTIN 400 MG CAP PO SCH ×4 (10:49→21:09)
[2017-05-09] MEDS: DOCUSATE SODIUM 50 MG/SENNA 8.6 MG TAB PO SCH ×2 (10:50→21:09)
[2017-05-09] MEDS: risperiDONE 0.5 MG TAB PO SCH ×2 (10:50→21:09)
[2017-05-09] MEDS: BACLOFEN 20 MG TAB PO SCH ×4 (10:50→21:09)
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
[2017-05-09] MEDS ORDERED: traMADol HCL 50 MG TAB PO PRN (13:00)
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
[2017-05-09 18:00] VITALS: BP 143/87; PULSE 87; RESP 16; TEMP 98.3; O2SAT 94
[2017-05-09] MEDS: VANCOMYCIN 1,500 MG/NS 500 ML IV SCH ×2 (18:00)
[2017-05-09] MEDS ORDERED: fentaNYL 100 MCG/HR PATCH T-DERMAL SCH (20:00)
--- NOTE | 2017-05-09 20:00 | MB ---
cc: Ministerio Rosario MD DATE OF CONSULT: REASON FOR CONSULTATION: Request to evaluate left proximal humerus fracture. HISTORY OF PRESENT ILLNESS: Gee Umaña is a 62-year-old L5 paraplegic male who has history of multiple dislocations of his left shoulder with chronic dysfunction of the left shoulder, who came in to the hospital on 05/07/2017 with a UTI which resulted in neurologic dysfunction such that he required restraints. This left shoulder has permanent disability as it is chronically dislocated with a past history of Goltry procedure and excision of the internal fixation. He also has a 90-degree wrist drop on the left side and some dysfunction of his elbow. X-rays showed arthritic change to the shoulder and was read as a nondisplaced proximal humerus fracture and consultation was requested with the undersigned. PAST MEDICAL HISTORY: Significant for the L5 paraplegia secondary to spine problems. MEDICATIONS: He is on a very long list of medications, which have been reviewed and are maintained in the chart. The patient has a history of recent infection and he was reported on vancomycin prior to being admitted. SOCIAL HISTORY: He is a [place]. He is unemployed. He lives with his . PHYSICAL EXAMINATION: GENERAL: The patient is alert, oriented, appropriate, and a good historian of his shoulder in the past. He states that the pain in the shoulder is much worse than it normally is, although he does live with chronic pain in his shoulder. MUSCULOSKELETAL: He has good motion of his neck. His right upper extremity is benign. Lower extremities are consistent with paralytic condition. With the left arm, he can flex and extend his elbow. His wrist is at 90-degree wrist drop position but he is able to flex and extend his hand and he has sensation intact. I took him through passive motion of his shoulder, which caused discomfort but no major crepitation with forward elevation to about 50 degrees, abduction to about 30 degrees, external rotation to 20 degrees, internal rotation to 40 degrees. His distal pulse are intact. His skin is intact. No ecchymosis about the shoulder. Mild swelling. IMAGING STUDIES: X-rays were reviewed which is consistent with a nondisplaced proximal humerus fracture, as well as arthritis of the shoulder. ASSESSMENT: Chronic anterior dislocation, status post multiple surgeries with chronic dysfunction of the left shoulder and an acute nondisplaced proximal humerus fracture. MEDICAL DECISION MAKING: His condition was discussed. Options and treatments were discussed. Recommendation is nonoperative management for this condition. We talked about the option of the use of a sling but being that he is paralyzed, if he can just keep the elbow down low, I think he will be reasonably comfortable. We talked about the option to follow up in the office or just of just letting this settle on its own over the long course of time, letting common sense guide him. He asked appropriate questions. All of his questions were answered. MD LUIZ Luke/REYNALDO , 07:12 PM , 07:59 PM
[2017-05-09] MEDS: REMOVE OLD NICODERM (NICOTINE) PATCH T-DERMAL SCH (21:00)
[2017-05-09] MEDS: BISACODYL 10 MG SUPP RECTAL PRN (23:23)
[2017-05-10] MEDS: cefTRIAXone INJ 1,000 MG in SODIUM CHLORIDE 0.9% INJ 100 ML IV SCH (05:05)
[2017-05-10 06:00] VITALS: BP 137/88; PULSE 94; RESP 18; TEMP 97.8; O2SAT 92
[2017-05-10 08:06] LABS: AUTOMATED NEUTROPHIL # 8.4 TH/MM3 (1.8-7.7); BASOPHIL # 0.1 TH/MM3 (0-0.2); BASOPHIL % 0.5 % (0.0-2.0); EOSINOPHIL # 0.3 TH/MM3 (0-0.4); EOSINOPHIL % 2.2 % (0.0-4.0); HEMATOCRIT 38.6 % (39.0-51.0); LYMPH % 16.3 % (9.0-44.0); MEAN CELL VOLUME 84.7 FL (80.0-100.0); MEAN CORPUSCULAR HEMOGLOBIN 28.5 PG (27.0-34.0); MEAN CORPUSCULAR HGB CONC 33.7 % (32.0-36.0); MEAN PLATELET VOLUME 7.8 FL (7.0-11.0); MONO % 11.1 % (0.0-8.0); MONOCYTE # 1.3 TH/MM3 (0-0.9); NEUT % 69.9 % (16.0-70.0); PLATELET COUNT 460 TH/MM3 (150-450); RED BLOOD COUNT 4.56 MIL/MM3 (4.50-5.90); RED CELL DISTRIBUTION WIDTH 14.5 % (11.6-17.2); WHITE BLOOD COUNT 12.1 TH/MM3 (4.0-11.0)
[2017-05-10 08:22] LABS: ALBUMIN 3.1 GM/DL (3.4-5.0); ALT (GPT) 18 U/L (12-78); AST (GOT) 10 U/L (15-37); BICARBONATE 27.2 MEQ/L (21.0-32.0); BLOOD UREA NITROGEN 18 MG/DL (7-18); CALCIUM 8.9 MG/DL (8.5-10.1); CHLORIDE 105 MEQ/L (98-107); CREATININE 0.69 MG/DL (0.60-1.30); GLOMERULAR FILTRATION RATE 117 ML/MIN (>89); GLUCOSE,RANDOM 94 MG/DL (74-106); SODIUM (NA) 139 MEQ/L (136-145)
[2017-05-10 08:24] LABS: ALKALINE PHOSPHATASE 108 U/L (45-117); TOTAL BILIRUBIN ADULT 0.4 MG/DL (0.2-1.0); TOTAL PROTEIN 7.9 GM/DL (6.4-8.2)
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
[2017-05-10] MEDS: GABAPENTIN 400 MG CAP PO SCH ×4 (10:54→21:00)
[2017-05-10] MEDS: risperiDONE 0.5 MG TAB PO SCH ×2 (10:54→21:00)
[2017-05-10] MEDS: BACLOFEN 20 MG TAB PO SCH ×4 (10:54→21:00)
[2017-05-10] MEDS: DOCUSATE SODIUM 50 MG/SENNA 8.6 MG TAB PO SCH ×2 (10:54→21:00)
[2017-05-10] MEDS: NICOTINE 21 MG/24 HR PATCH T-DERMAL SCH (10:55)
--- NOTE | 2017-05-10 13:36 | HHI.PYPN ---
Subjective Remarks Patient is seen for follow up, chart reviewed. Discussion nursing staff reported the patient was seen by orthopedic consults. Patient was found lying in hospital bed calm, cooperative. Patient states that he is feeling "better" reports having been seen by orthopedics who had suggested conservative approach for now but will need to continue outpatient follow-up after discharge. The patient reports having slept better, continues to adhere to medications, denies any perceptual disturbances or delusions at this time. Review of Systems Except as stated in HPI: all other systems reviewed are Neg Mental Status Examination Appearance: Appropriate Consciousness: Alert Orientation: x4 Motor Activity: Normal gait Speech: Unremarkable Language: Adequate Fund of Knowledge: Adequate Attention and Concentration: Adequate Memory: Unremarkable Mood: Appropriate Affect: Appropriate Thought Process & Associations: Intact Thought Content: Appropriate Hallucination Type: None Delusion Type: None Suicidal Ideation: No Suicidal Plan: No Suicidal Intention: No Homicidal Ideation: No Homicidal Plan: No Homicidal Intention: No Insight: Fair Judgment: Impulsive Results Labs Labs reviewed Test 05/10/17 07:47 White Blood Count 12.1 TH/MM3 Red Blood Count 4.56 MIL/MM3 Hemoglobin 13.0 GM/DL Hematocrit 38.6 % Mean Corpuscular Volume 84.7 FL Mean Corpuscular Hemoglobin 28.5 PG Mean Corpuscular Hemoglobin Concent 33.7 % Red Cell Distribution Width 14.5 % Platelet Count 460 TH/MM3 Mean Platelet Volume 7.8 FL Neutrophils (%) (Auto) 69.9 % Lymphocytes (%) (Auto) 16.3 % Monocytes (%) (Auto) 11.1 % Eosinophils (%) (Auto) 2.2 % Basophils (%) (Auto) 0.5 % Neutrophils # (Auto) 8.4 TH/MM3 Lymphocytes # (Auto) 2.0 TH/MM3 Monocytes # (Auto) 1.3 TH/MM3 Eosinophils # (Auto) 0.3 TH/MM3 Basophils # (Auto) 0.1 TH/MM3 CBC Comment DIFF FINAL Differential Comment Blood Urea Nitrogen 18 MG/DL Creatinine 0.69 MG/DL Random Glucose 94 MG/DL Total Protein 7.9 GM/DL Albumin 3.1 GM/DL Calcium Level 8.9 MG/DL Alkaline Phosphatase 108 U/L Aspartate Amino Transf (AST/SGOT) 10 U/L Alanine Aminotransferase (ALT/SGPT) 18 U/L Total Bilirubin 0.4 MG/DL Sodium Level 139 MEQ/L Potassium Level 3.8 MEQ/L Chloride Level 105 MEQ/L Carbon Dioxide Level 27.2 MEQ/L Anion Gap 7 MEQ/L Estimat Glomerular Filtration Rate 117 ML/MIN Vitals/IOs Vital Signs Date Time Temp Pulse Resp B/P (MAP) Pulse Ox O2 Delivery O2 Flow Rate FiO2 05/10/17 06:00 97.8 94 18 137/88 (104) 92 Intake and Output 05/10/17 05/10/17 05/11/17 08:00 16:00 00:00 Intake Total 240 ml 600 ml Output Total 1200 ml Balance -960 ml 600 ml Assessment & Plan Problem List: (1) Unspecified psychosis ICD Codes: F29 - Unspecified psychosis not due to a substance or known physiological condition Assessment & Plan Patient this time noted to have improved mood to be, cooperative. Patient denies any depressive, manic or psychotic symptoms at this time. Patient denies any perceptual disturbances or delusions. We will obtain collateral information from to assess patient's baseline but likely for discharge tomorrow from psychiatric service. He continue recommendations as per primary team, orthopedic consult input appreciated, continue current treatment. Discharge planning in progress. Justification for Cont. Inpt. At risk for further decompensation if at lower level of care Discharge Planning Patient to return back to his residence once psychiatrically and medically cleared. Michael Jackman MD May 10, 2017 13:36
[2017-05-10] MEDS ORDERED: PHARMACY ORDERED LAB ONE (17:45)
[2017-05-10 18:41] VITALS: BP 137/88; PULSE 95; RESP 18; TEMP 97.7
[2017-05-10] MEDS: VANCOMYCIN 1,500 MG/NS 500 ML IV SCH ×2 (20:00)
[2017-05-10] MEDS: REMOVE OLD NICODERM (NICOTINE) PATCH T-DERMAL SCH (21:00)
[2017-05-11 06:00] VITALS: BP 134/98; PULSE 107; RESP 16; TEMP 97.8; O2SAT 93
[2017-05-11] MEDS: cefTRIAXone INJ 1,000 MG in SODIUM CHLORIDE 0.9% INJ 100 ML IV SCH (06:00)
[2017-05-11] MEDS ORDERED: VANCOMYCIN INJ 1,000 MG in SODIUM CHLOR 0.9% 250 ML INJ 250 ML IV SCH (08:00)
--- NOTE | 2017-05-11 09:00 | HHI.FF ---
Face to Face Verification Diagnosis: (1) Endocarditis (2) UTI (urinary tract infection) (3) Suprapubic catheter (4) Fracture, humerus Physical Therapy Order: Evaluate and Treat Home Health Nursing Order: Medical education Signs/symptoms of disease process Nursing assessment with vital signs IV medication administration Yanez catheter maintenance I have seen patient Gee Umaña on 05/11/17. My clinical findings support the need for the requested home health care services because: Ltd mobility - disease progression Deconditioned w/ increased weakness Limited ability to care for self I certify that my clinical findings support that this patient is homebound because: Unsafe to leave home unassisted Need for psychosocial assistance [id number] bed/chair Unable to use public transportation Resume previous orders for Vancomycin, with weekly [employer] [employer] forwarded to primary care physician. Left humeral neck fracture is new, avoid unnecessarily moving the left arm. Edin Patton MD May 11, 2017 09:00
[2017-05-11] MEDS: BACLOFEN 20 MG TAB PO SCH ×2 (10:08→12:13)
[2017-05-11] MEDS: NICOTINE 21 MG/24 HR PATCH T-DERMAL SCH (10:08)
[2017-05-11] MEDS: risperiDONE 0.5 MG TAB PO SCH (10:09)
[2017-05-11] MEDS: DOCUSATE SODIUM 50 MG/SENNA 8.6 MG TAB PO SCH (10:09)
[2017-05-11] MEDS: GABAPENTIN 400 MG CAP PO SCH ×2 (10:09→12:13)
[2017-05-11] MEDS ORDERED: RISP0.5T25 PO (11:41)
--- NOTE | 2017-05-11 11:42 | HHI.DS ---
Psychiatry Discharge Summary Inpatient Psychiatric care?: Yes Advance Directive: No Reason Not Provided: refuses Mental Health AdvanceDirective: No Health Care Proxy: No Admission Admission Date May 07, 2017 at 12:06 Admission Diagnosis: (1) Unspecified psychosis ICD Code: F29 - Unspecified psychosis not due to a substance or known physiological condition Brief History The patient is a 62-year-old man, domiciled with his in [place], unemployed, , supported by SSI and shelter benefits, without no previous psychiatric history, no previous psychiatric hospitalizations, no previous suicidal attempts, he does have cannabis use disorder, with history of recent endocarditis on IV Vancomycin, COPD, encephalomyelitis, arthritis, anxiety, paraplegia mostly wheelchair bound, suprapubic catheter in place, presents under [place] placed by police department. The patient states he and his had a disagreement. She told him he lost his mind and he didn't agree. She called police to come to the house. The patient left on his electric wheelchair to go for a "raisa ride" down to the [place], when the police picked him up on the way. Per the Pretty Act, patient was driving the scooter erratically and would not stop for police. The patient states he was recently admitted to [facility], diagnosed with an "infection in my heart". He was discharged 2 days ago. He has been at home with [facility] receiving IV Vanco bid. The [facility] nurse administered the antibiotic in the mornings, and his has been administering this in the evening. Patient consulted to psychiatry to address psychosis. On psychiatric evaluation the patient is a little bit agitated, irritable and suspicious, however, he is easily redirectable. Patient reports that he doesn't really understand the reason he was brought to the hospital last night. He says that he was running away from his "because she has been trying to steal my money and mistreating me". He says that he has been having disagreements with his about his money and about his health. But, at the same time, he says that his is his reason to live and she is the one that takes better care of him and knows all his problems. The patient reports okay mood, denies depressive symptoms, he denies anxiety, he denies suicidal and homicidal ideation, he denies visual and auditory hallucinations. 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 No agitation or aggressive behavior present at this moment. I spoke personally with his , Jillian bryant, , who clarifies that the patient has been in and out of confusion and erratic behavior in the last weeks due to UTI. She says that at times the patient doesn't know where he is, sees things, but he has never has become so paranoid towards her and she describes this episode as something new. She confirms that the patient doesn't have any previous psychiatric history, no previous suicidal attempts, and he is not taking any psychotropics. She also confirms that the patient doesn't use any drugs or alcohol, but does smoke marijuana almost everyday. Second opinion: Patient seen for follow up and second opinion; chart reviewed. Discussion with nursing staff reported the patient had stated that there was a baby under his bed. Patient was found lying in hospital bed noted to be guarded and superficially cooperative. Patient states that he does not need to sleep at night but did state slept well last evening which was unusual for him. Patient states that he usually takes naps during the day stating that he only takes 2-3 hours at night. One recall events prior to hospitalization patient states that he left the home to get away from his which was sometime in the night and denies having done anything unusual to have himself brought in by the police. He states that he had argued with his and was going down the bike path contrary to police report patient was coming in and out of traffic which she denied. He also mentioned that he the has plans to take all his money and that she had him for his money. Patient states he has not spoken to her since his admission plans to. Patient reports his mood being "good" denies any suicidal or homicidal ideations, denies any perceptional disturbances. When asked about visual hallucinations which she had endorsed as per chart he denied. Tobacco Use In Past 30 Days: Refused To Answer Alcohol Use: Never Hospital Course The patient is a 62-year-old man, domiciled with his in [place], unemployed, , supported by [employer] and shelter benefits, without no previous psychiatric history, no previous psychiatric hospitalizations, no previous suicidal attempts, he does have cannabis use disorder, with history of recent endocarditis on IV Vancomycin, COPD, encephalomyelitis, arthritis, anxiety, paraplegia mostly wheelchair bound, suprapubic catheter in place, presents under [place] placed by police department and patient was admitted to the inpatient psychiatry for further evaluation and management. Due to active psychotic symptoms as well visual hallucinations and disorganization, risperidone was started for psychosis which he tolerated well and continued with medical follow up with primary medical team. Patient with continued treatment was noted to have progressive improvement of mood, cessation of auditory and visual hallucinations, and compliant with treatment. Patient was cooperative with staff, had no behavioral dyscontrol, and participated in his care. Upon discharge patient stated that she was feeling good, denied any psychotic symptoms, denied any SI, HI or delusions. Patient agreed to continue medication regimen and outpatient follow up for continuity of care. Patients was involved in his care and continued to be supportive of his aftercare treatment plan. I have counseled the patient regarding warning signs for need to return to the psychiatric emergency room as part of a general safety plan. Patient advised to call 911 or go nearest ED in case of emergency. Patient agrees with plan. Results Blood Pressure 134 / 98 Vital Signs Date Time Temp Pulse Resp B/P (MAP) Pulse Ox O2 Delivery O2 Flow Rate FiO2 05/11/17 06:00 97.8 107 16 134/98 (110) 93 Laboratory Tests Test 05/10/17 07:47 05/10/17 18:20 White Blood Count 12.1 TH/MM3 (4.0-11.0) Hematocrit 38.6 % (39.0-51.0) Platelet Count 460 TH/MM3 (150-450) Monocytes (%) (Auto) 11.1 % (0.0-8.0) Neutrophils # (Auto) 8.4 TH/MM3 (1.8-7.7) Monocytes # (Auto) 1.3 TH/MM3 (0-0.9) Albumin 3.1 GM/DL (3.4-5.0) Aspartate Amino Transf (AST/SGOT) 10 U/L (15-37) Vancomycin Level Trough 10.1 MCG/ML (5.0-10.0) Laboratory Results Test 05/08/17 06:53 Cholesterol Level 127 MG/DL (120-200) HDL Cholesterol 52.9 MG/DL (40.0-60.0) Hemoglobin A1c 5.5 % (4.3-6.0) LDL Cholesterol 63 MG/DL (0-99) Triglycerides Level 55 MG/DL (42-150) Summary of Procedures none Imaging Last Impressions Humerus X-Ray 05/09/17 0000 Signed Impressions: Service Date/Time: Tuesday, May 09, 2017 10:01 - CONCLUSION: There is an acute fracture of the proximal humeral metaphysis and the surgical neck region. Jorje Acevedo MD Tube Placement X-Ray 05/07/17 0000 Signed Impressions: Service Date/Time: Sunday, May 07, 2017 16:00 - CONCLUSION: Uncomplicated suprapubic catheter exchange. Harrison Claudio MD Pending results at discharge: No Medications # of Antipsychotic meds at D/C: 1 Approp Antipsych med options 1 - Minimum of three failed multiple trials of monotherapy. 2 - Documented plan to taper to monotherapy due to previous use of multiple meds OR cross-taper in progress at D/C. 3 - Documentation of augmentation of Clozapine. 4 - Justification other than those listed in allowable values 1-3, document here : Discharge Discharge Date: May 11, 2017 Discharge Diagnosis: (1) Unspecified psychosis ICD Code: F29 - Unspecified psychosis not due to a substance or known physiological condition Pt Condition on Discharge: Stable Discharge Disposition: Discharge Home Discharge Instructions Diet Instructions: Heart Healthy Diet Activities you can perform: Weight Bearing as Marry Scheduled Appointment: Private Psychiatrist Appointment Date: May 14, 2017 Appointment Time: 09:00am Discharge Time > 30 minutes Mental Status Examination Appearance: Appropriate Consciousness: Alert Orientation: x4 Motor Activity: Normal gait Speech: Unremarkable Language: Adequate Fund of Knowledge: Adequate Attention and Concentration: Adequate Memory: Unremarkable Mood: Appropriate Affect: Appropriate Thought Process & Associations: Intact Thought Content: Appropriate Hallucination Type: None Delusion Type: None Suicidal Ideation: No Suicidal Plan: No Suicidal Intention: No Homicidal Ideation: No Homicidal Plan: No Homicidal Intention: No Insight: Fair Judgment: Impulsive Discharge/Advance Care Plan Health Problems: (1) Unspecified psychosis Goals to promote your health * To prevent worsening of your condition and complications * To maintain your health at the optimal level Directions to meet your goals Take your medications as prescribed Follow your dietary instruction Follow activity as directed Keep your appointments as scheduled Take your immunizations and boosters as scheduled If your symptoms worsen call your PCP, if no PCP go to Urgent Care Center or Emergency Room For 02/10 questions related to your inpatient stay or results of tests pending at discharge, please contact Dr. Michael Jackman at Smoking is Dangerous to Your Health. Avoid second hand smoking Michael Jackman MD May 11, 2017 11:42
--- NOTE | 2017-05-11 12:56 | HHI.PR ---
Subjective Remarks 62-year-old male who has no complaints today and is feeling ready to go home. He was admitted for altered mental status which turned out to be likely from dehydration combined with antibiotic side effect. He suffered a left humeral neck fracture while he was here, but is optimistic about having his shoulder replaced and states "I now have a good reason". Objective Vitals Vital Signs Date Time Temp Pulse Resp B/P (MAP) Pulse Ox O2 Delivery O2 Flow Rate FiO2 05/11/17 06:00 97.8 107 16 134/98 (110) 93 05/10/17 18:41 97.7 95 18 137/88 (104) I/O 05/10/17 05/10/17 05/10/17 05/11/17 05/11/17 05/11/17 07:00 15:00 23:00 07:00 15:00 23:00 Intake Total 240 ml 600 ml 1680 ml 635 ml 300 ml Output Total 1200 ml 1200 ml 1525 ml Balance -960 ml 600 ml 480 ml -890 ml 300 ml Intake Oral 240 ml 600 ml 1680 ml 120 ml 300 ml IV Total 515 ml Output Urine Total 1200 ml 1200 ml 1525 ml Result Diagram: 05/10/17 0747 05/10/17 0747 Objective Remarks GENERAL: Well-nourished, generally weak, left-sided deficit noted in upper extremity SKIN: Warm and dry, scar on upper lip HEAD: Normocephalic. EYES: No scleral icterus. No injection or drainage. NECK: Supple, trachea midline. No JVD or lymphadenopathy. CARDIOVASCULAR: Regular rate and rhythm without murmurs, gallops, or rubs. RESPIRATORY: Breath sounds equal bilaterally. No accessory muscle use. GASTROINTESTINAL: Abdomen soft, non-tender, nondistended. EXTREMITIES: Left arm is contracted, chronic displacement of humeral head, tender to palpation of proximal humerus NEUROLOGICAL: Awake, alert, and oriented x 3. Non-focal. A/P Problem List: (1) Fracture, humerus ICD Code: S42.309A - Unspecified fracture of shaft of humerus, unspecified arm , initial encounter for closed fracture Assessment and Plan Psychosis/Paranoia presented under [place] Act by police department, driving electric wheelchair erratically, reportedly paranoid his was stealing his money. Acute Encephalopathy All symptoms have cleared Head CT shows no acute changes. Complicated UTI with Suprapubic Catheter IR exchanged suprapubic catheter IV Rocephin, 4 days completed should be sufficient therapy for mixed aubrey in urine culture. Fracture of left humerus Patient complains of pain, arm was pulled in the ER X-ray reveals fracture of left humeral diaphysis and surgical neck Orthopedic evaluation states nonsurgical at this time Follow-up with orthopedics to to discuss surgical options as outpatient following completion of vancomycin for full treatment of endocarditis (64 days) Recent Endocarditis Diagnosis at [facility], on IV vancomycin twice daily at home Continue with vancomycin dosing IV Sacral Ulcer Appreciate wound care nurse consult for this chronic issue We will arrange for home health care upon discharge DVT Prophylaxis Lovenox Code Status Full code Discharge planning Patient is medically cleared for discharge and can resume vancomycin dosing through home health care Edin Patton MD May 11, 2017 12:56
[2017-05-11] MEDS ORDERED: PHARMACY ORDERED LAB ONE (15:45)
== END 2017-05-11 16:30 | disposition home or self-care (01) | DRG 885 ==
LOC: H4EA 12:06
PROVIDERS: ADMIT Student in an Organized Health Care Education/Training Program; ATTEND Student in an Organized Health Care Education/Training Program
PROC: 0T2BX0Z Change Drainage Device in Bladder, External Approach (ICD-10-PCS; principal; 2017-05-07)
DX: F29 Unspecified psychosis not due to a substance or known physiological condition (principal); G93.40 Encephalopathy, unspecified; L89.159 Pressure ulcer of sacral region, unspecified stage; G82.20 Paraplegia, unspecified; I38 Endocarditis, valve unspecified; E86.0 Dehydration; N39.0 Urinary tract infection, site not specified; S42.212A Unspecified displaced fracture of surgical neck of left humerus, initial encounter for closed fracture; T83.510A Infection and inflammatory reaction due to cystostomy catheter, initial encounter; J98.11 Atelectasis; J44.9 Chronic obstructive pulmonary disease, unspecified; F12.90 Cannabis use, unspecified, uncomplicated; F41.9 Anxiety disorder, unspecified; N31.9 Neuromuscular dysfunction of bladder, unspecified; G62.9 Polyneuropathy, unspecified; F17.210 Nicotine dependence, cigarettes, uncomplicated; M21.332 Wrist drop, left wrist; X58.XXXA Exposure to other specified factors, initial encounter; M19.012 Primary osteoarthritis, left shoulder; Z86.14 Personal history of Methicillin resistant Staphylococcus aureus infection; Z81.8 Family history of other mental and behavioral disorders; Z85.828 Personal history of other malignant neoplasm of skin; Z87.442 Personal history of urinary calculi; Z99.3 Dependence on wheelchair; Z78.1 Physical restraint status; B95.8 Unspecified staphylococcus as the cause of diseases classified elsewhere; Z86.61 Personal history of infections of the central nervous system; Z87.440 Personal history of urinary (tract) infections; Z93.59 Other cystostomy status
CPT/HCPCS: 73060; 80048; 80053; 80061; 80202; 83036; 85025; J0696; J3370; J7040; J7050; Q9967